=== PATIENT | male | born 1945 | race Caucasian/White ===

== ENCOUNTER 2017-12-16 06:40 | Day surgery (SDC) | payer OTHER ==
[2017-12-16] MEDS ORDERED: Phenylephrine HCl 10 MG/ML 1 ML VIAL ONE ×2 (06:58→07:57)
[2017-12-16] MEDS ORDERED: Ringers Lactate 1,000 ML IV ONE (06:58)
[2017-12-16] MEDS ORDERED: GLYCOPYRROLATE 0.2 MG/ML SYR ONE (06:58)
[2017-12-16] MEDS: LIDOCAINE 4% TOP SOLUTION ONE ×2 (07:23→08:03)
[2017-12-16] MEDS ORDERED: ALBUTEROL 2.5 MG/3 ML NEB SOL ONE (07:51)
[2017-12-16] MEDS ORDERED: PROPOFOL 200 MG/20 ML VIAL IV ONE (07:56)
[2017-12-16] MEDS ORDERED: ESMOLOL HCL 10 ML IV ONE (07:57)
[2017-12-16] MEDS ORDERED: LIDOCAINE 1% MPF 5 ML VIAL ONE ×2 (08:01→09:47)
--- NOTE | 2017-12-16 08:31 | P.OP ---
Date of Service: 12/16/17 (Bronchoscopy with right upper lobe endobronchial biopsy and BAL) Findings and Operative Technique Patient is 72 years of age presented to me with a right upper lobe lung mass history of tobacco abuse hence the reason for bronchoscopy After obtaining informed consent from the patient he was premedicated by anesthesia finding normal vocal cords normal trachea a normal left-sided bronchial anatomy on the right side right upper lobe was in occluded with a pearly white tumor Multiple biopsies were obtained patient tolerated the procedure very well did not experience any hemodynamic abnormalities specimens sent off for routine studies
--- NOTE | 2017-12-16 10:08 | RAD REPORT ---
EXAM DESCRIPTION: Alysa Single View12/16/2017 9:43 am CLINICAL HISTORY: Chest pain COMPARISON: none FINDINGS: A pneumothorax is not visualized status post bronchoscopy. IMPRESSION: A pneumothorax is not seen
--- NOTE | 2017-12-16 10:17 | RAD REPORT ---
EXAM DESCRIPTION: RAD - FLUORO-GUIDE FOR BRONCH UPT1HR - 12/16/2017 8:46 am CLINICAL HISTORY: Lung mass FINDINGS: Right bronchoscopy was performed by Dr. Muñiz. Three fluoroscopic spot images are submi tted. Fluoroscopy time 1.5 minutes
== END 2017-12-16 10:10 | disposition home or self-care (01) ==
LOC: OR 06:40
PROVIDERS: ATTEND Internal Medicine Sleep Medicine
PROC: 0BB48ZX Excision of Right Upper Lobe Bronchus, Via Natural or Artificial Opening Endoscopic, Diagnostic (ICD-10-PCS; principal; 2017-12-16 08:00)
DX: C34.11 Malignant neoplasm of upper lobe, right bronchus or lung (principal); I10 Essential (primary) hypertension; E78.5 Hyperlipidemia, unspecified
CPT/HCPCS: 00520; 31625; 71045; 76000; 87015; 87102; 87116; 87206; 88108; 88305 ×2; 94640; J2370

== ENCOUNTER 2018-06-12 09:55 | Inpatient (IN) | payer OTHER ==
[2018-06-12 10:31] LABS: Absolute Lymphocytes (CBC) 0.4 K/uL (0.7-4.9); Absolute Monocytes 0.2 K/uL (0.1-1.3); Absolute Neutrophil 12.4 K/uL (1.8-8.0); Basophils % 0.3 % (0-1.3); Hematocrit 36.2 % (39.6-49.0); Lymphocytes % 3.4 % (15.3-44.8); MPV 7.5 fL (7.6-11.3); Monocytes % 1.5 % (3.3-12.3); RBC Red Blood Cell Count 3.97 M/uL (4.33-5.43)
[2018-06-12 10:31] LABS: Arterial Blood Carboxyhemoglob 2.2 % (0-1.5); Blood Gas Oxyhemoglobin 83.2 % (94-97)
[2018-06-12 10:37] LABS: Protime INR 1.13
[2018-06-12] MEDS ORDERED: LEVALBUTEROL 1.25 MG/3 ML NEB ONE ×2 (10:38→13:37)
[2018-06-12 10:47] LABS: Platelet Estimate ADEQ; Toxic Granulation PRESENT; Urine White Blood Cell Casts OK
[2018-06-12 10:48] LABS: Blood Morphology Comment NOT SEEN (NOT SEEN)
[2018-06-12 10:50] LABS: ALT/SGPT 21 U/L (12-78); AST/SGOT 11 U/L (15-37); Albumin 2.9 g/dL (3.4-5.0); Alkaline Phosphatase 110 U/L (45-117); BUN Blood Urea Nitrogen 13 mg/dL (7-18); Bicarbonate 28 mmol/L (21-32); Bilirubin Direct 0.7 mg/dL (0-0.2); Bilirubin Total 1.8 mg/dL (0.2-1.0); Glucose Level 113 mg/dL (74-106); Magnesium 1.9 mg/dL (1.8-2.4); NT PRO-BNP 354 pg/mL (<125); Potassium 4.1 mmol/L (3.5-5.1); Protein, Total 6.6 g/dL (6.4-8.2); Sodium Level 131 mmol/L (136-145); Troponin (Emerg Dept Use Only) < 0.02 ng/mL (0.0-0.045)
--- NOTE | 2018-06-12 11:20 | RAD REPORT ---
EXAM DESCRIPTION: RAD - Chest Single View - 06/12/2018 10:52 am CLINICAL HISTORY: shortness of breath Chest pain. COMPARISON: Chest Single View dated 12/16/2017 FINDINGS: Portable technique limits examination quality. Moderate airspace opacity is seen right upper lobe laterally most likely representing pneumonia. Left lung is emphysematous but grossly clear. The heart is normal in size. No displaced fractures. IMPRESSION: Moderate right upper lobe airspace opacity likely representing pneumonia.
--- NOTE | 2018-06-12 11:47 | EDPHYS ---
Physician Documentation [facility] Name: Ramy Matthew Age: 72 yrs Sex: Male : 1945 Arrival Date: 06/12/2018 Time: 10:03 Bed 13 Private MD: ED Physician Se Kendall HPI: 06/12 10:16 This 72 yrs old Male presents to ER via Unassigned with complaints of jmm Shortness of breath. 10:16 The patient has shortness of breath at rest. Onset: The symptoms/episode began/occurred jmm gradually, last night. Duration: The symptoms are continuous, and are steadily getting worse. The patient's shortness of breath is aggravated by nothing, is alleviated by nothing. Associated signs and symptoms: Pertinent positives: fever. This is a 72 year old male with a history of COPD, lung cancer that presents to the ED with shortness of breath he is attributing to COPD which is worse than previous episodes. Patient also admits to fever. . Historical: - Allergies: 09:52 No Known Allergies; rb1 - Home Meds: 09:52 atorvastatin 80 mg oral tab 0.5 tab once daily [Active]; cyclobenzaprine 10 mg Oral tab rb1 1 tab bedtime [Active]; losartan 50 mg oral tab 1 tab once daily [Active]; calcium/vitamin D 500 mg - 200 unit daily [Active]; finasteride 5 mg oral tab 1 tab once daily [Active]; varenicline oral 1 mg oral 1 tab 2 times per day [Active]; etodolac 400 mg Oral Tb24 1 tab twice a day [Active]; Symbicort 160-4.5 mcg/actuation inhalation HFAA 2 puffs 2 times per day [Active]; ProAir HFA 90 mcg/actuation inhalation HFAA [Active]; - PMHx: 09:52 lung cancer- Stage 1; Aortic Aneurysm; rb1 09:52 COPD; rb1 - PSHx: 09:52 Hernia repair; Aortic Aneurysm; rb1 - Immunization history:: Adult Immunizations up to date. - Social history:: Smoking status: Patient uses tobacco products, smokes one-half pack cigarettes per day. - Ebola Screening: : Patient negative for fever greater than or equal to 101.5 degrees Fahrenheit, and additional compatible Ebola Virus Disease symptoms. ROS: 10:16 Cardiovascular: Negative for chest pain, palpitations, and edema. jm 10:16 Abdomen/GI: Negative for abdominal pain, nausea, vomiting, diarrhea, and constipation, Neuro: Negative for headache, weakness, numbness, tingling, and seizure. 10:16 Constitutional: Positive for chills, fever. 10:16 Respiratory: Positive for cough, shortness of breath, wheezing. 10:16 All other systems are negative. Exam: 10:16 Head/Face: atraumatic. Eyes: EOMI, no conjunctival erythema appreciated ENT: Moist jm Mucus Membranes Neck: Trachea midline, Supple Chest/axilla: Normal chest wall appearance and motion. 10:16 Abdomen/GI: Non distended, soft Back: Normal ROM Skin: General appearance color normal MS/ Extremity: Moves all extremities, no obvious deformities appreciated, no edema noted to the lower extremities Neuro: Awake and alert, normal gait 10:16 Constitutional: The patient appears alert, awake, uncomfortable. 10:16 Cardiovascular: Rate: tachycardic. 10:16 Respiratory: mild respiratory distress is noted, Respirations: labored breathing, that is mild, Breath sounds: wheezing: is heard diffusely. Vital Signs: 09:52 BP 114 / 67; Pulse 71; Resp 32; Temp 98.5(TE); Pulse Ox 97% on Nebulizer Mask; Weight rb1 86.18 kg; Height 5 ft. 7 in. (170.18 cm) (R); Pain 7/10; 10:50 BP 108 / 57; Pulse 121; Resp 22; Pulse Ox 99% on R/A; rb1 11:50 BP 125 / 68; Pulse 118; Resp 32; Pulse Ox 95% on R/A; Pain 7/10; rb1 12:50 BP 125 / 69; Pulse 114; Resp 22; Pulse Ox 95% on R/A; rb1 13:20 BP 114 / 83; Pulse 122; Resp 25; Pulse Ox 95% on R/A; rb1 14:02 BP 121 / 70; Pulse 122; Resp 27; Pulse Ox 98% on Nebulizer Mask; rb1 09:52 Body Mass Index 29.76 (86.18 kg, 170.18 cm) rb1 09:52 pt. arrived with breathing treatment being administered. rb1 MDM: 10:08 Patient medically screened. [facility] 11:43 Data reviewed: vital signs, nurses notes, lab test result(s), radiologic studies, plain jmm films. Counseling: I had a detailed discussion with the patient and/or guardian regarding: the historical points, exam findings, and any diagnostic results supporting the discharge/admit diagnosis, lab results, radiology results, the need for further work-up and treatment in the hospital. ED course: I discussed the patient with Dr. Weaver whom accepted the patient . 06/12 10:13 Order name: Basic Metabolic Panel; Complete Time: : [facility] 06/12 10:13 Order name: CBC with Diff; Complete Time: [facility] 06/12 10:13 Order name: LFT's; Complete Time: : [facility] 06/12 10:13 Order name: Magnesium; Complete Time: [facility] 06/12 10:13 Order name: NT PRO-BNP; Complete Time: : [facility] 06/12 10:13 Order name: PT-INR; Complete Time: 10:41 [facility] 06/12 10:13 Order name: Troponin (emerg Dept Use Only); Complete Time: : [facility] 06/12 10:13 Order name: XRAY Chest (1 view); Complete Time: : [facility] 06/12 10:13 Order name: ABG; Complete Time: 11:33 [facility] 06/12 10:13 Order name: Blood Culture Adult (2) [facility] 06/12 10:13 Order name: Procalcitonin; Complete Time: : [facility] 06/12 10:13 Order name: Lactate; Complete Time: : [facility] 06/12 10:33 Order name: CBC Smear Scan; Complete Time: 11:31 [facility] 06/12 10:48 Order name: Flu; Complete Time: 12:10 [facility] 06/12 10:13 Order name: EKG; Complete Time: 10:14 [facility] 06/12 10:13 Order name: Cardiac monitoring; Complete Time: 11:48 [facility] 06/12 10:13 Order name: EKG - Nurse/Tech; Complete Time: 11:48 [facility] 06/12 10:13 Order name: IV Saline Lock; Complete Time: 11:48 [facility] 06/12 10:13 Order name: Labs collected and sent; Complete Time: 11:48 [facility] 06/12 10:13 Order name: O2 Per Protocol; Complete Time: 11:48 [facility] 06/12 10:13 Order name: O2 Sat Monitoring; Complete Time: 11:48 [facility] Administered Medications: 10:30 Drug: Xopenex (3) 1.25 mg Route: Inhalation; rb1 11:42 CANCELLED (different dose): NS 0.9% 1000 ml IV at 1 bolus Per protocol; 1000 mL bolus [facility] 12:21 Not Given (Ordered changed to IVP): Rocephin - (cefTRIAXone) 1 grams IVPB once over 30 rb1 mins; (mix in 50 mL NS) 12:25 Drug: NS 0.9% (30 ml/kg) 30 ml/kg Route: IV; Rate: bolus; Site: right hand; rb1 13:50 Follow up: IV Status: Completed infusion; IV Intake: 1000ml rb1 12:25 Drug: Rocephin 1 grams Route: IV; Rate: calculated rate; Site: right hand; rb1 12:55 Follow up: Response: No adverse reaction; IV Status: Completed infusion rb1 13:30 Drug: Xopenex (3) 1.25 mg Route: Inhalation; rb1 Disposition: 06/12/18 11:46 Hospitalization ordered by Mayi Weaver for Observation. Preliminary diagnosis is Pneumonia. - Bed requested for Telemetry/MedSurg (observation). - Status is Observation. rb1 - Condition is Stable. - Problem is new. - Symptoms are unchanged. UTI on Admission? No Addendum: 06/14/2018 10:21 Co-signature as Attending Physician, Se Kendall MD. g s Signatures: Dispatcher [employer] EDMS Chaparrita Cohn Joel, PA PA [facility] Rose Andre, ZOË CAMP rb1 Se Kendall MD MD gs Corrections: (The following items were deleted from the chart) 06/12 11:42 11:41 NS 0.9% 1000 ml IV at 1 bolus Per protocol; 1000 mL bolus ordered. [facility] 13:04 11:46 Hospitalization Ordered by Mayi Weaver MD for Observation. Preliminary diagnosis bd is Pneumonia. Bed requested for Telemetry/MedSurg (observation). Status is Observation. Condition is Stable. Problem is new. Symptoms are unchanged. UTI on Admission? No. [facility] 14:19 13:04 06/12/2018 11:46 Hospitalization Ordered by Mayi Weaver MD for Observation. rb1 Preliminary diagnosis is Pneumonia. Bed requested for Telemetry/MedSurg (observation). Status is Observation. Condition is Stable. Problem is new. Symptoms are unchanged. UTI on Admission? No. bd
--- NOTE | 2018-06-12 11:47 | ER ---
Nurse's Notes [facility] Name: Ramy Matthew Age: 72 yrs Sex: Male : 1945 Arrival Date: 06/12/2018 Time: 10:03 Bed 13 Private MD: Diagnosis: Pneumonia Presentation: 06/12 09:52 Presenting complaint: EMS states: Pt. is A \\T\\ O x 4, has a history of Stage 1 lung rb1 cancer. Became SOB last night and it has increasingly gotten worse. Pt. wears oxygen at home but does not have a humidifier so it dries up his throat and makes it difficult to breath. Wheezing in all lung [place] and diminished breath sounds in the lower lobes. Administered Albuterol and Atrovent, and Solu-Medrol. BP 111/82, P 130's, O2 sat was 88% when EMS arrived, after the breathing treatment was administered O2 sat increased to 97-98%, BGL 132, T 101.2. NKA and 18 G L AC. Transition of care: patient was not received from another setting of care. Onset of symptoms was June 11, 2018. Risk Assessment: Do you want to hurt yourself or someone else? Patient reports no desire to harm self or others. Initial Sepsis Screen: Does the patient meet any 2 criteria? No. Patient's initial sepsis screen is negative. Does the patient have a suspected source of infection? No. Patient's initial sepsis screen is negative. Care prior to arrival: Medication(s) given: Albuterol Neb Atrovent Neb Solu-Medrol. 09:52 Method Of Arrival: EMS: [facility] rb1 09:52 Acuity: ANALY 3 rb1 Triage Assessment: 09:52 General: Appears uncomfortable, Behavior is calm, cooperative, Reports fever for. Pain: rb1 Complains of pain in generalized Pain currently is 7 out of 10 on a pain scale. Pain began Pt. stated, "My whole body hurts all the time.". Neuro: Level of Consciousness is awake, alert, obeys commands, Oriented to person, place, time, situation. Cardiovascular: Capillary refill < 3 seconds is brisk in bilateral fingers. Respiratory: Airway is patent Respiratory effort is even, labored, Respiratory pattern is symmetrical, tachypnea. GI: No signs and/or symptoms were reported involving the gastrointestinal system. : No signs and/or symptoms were reported regarding the genitourinary system. Derm: Skin is pink, warm \\T\\ dry. Musculoskeletal: Range of motion: intact in all extremities. Historical: - Allergies: :52 No Known Allergies; rb1 - Home Meds: :52 atorvastatin 80 mg oral tab 0.5 tab once daily [Active]; cyclobenzaprine 10 mg Oral tab rb1 1 tab bedtime [Active]; losartan 50 mg oral tab 1 tab once daily [Active]; calcium/vitamin D 500 mg - 200 unit daily [Active]; finasteride 5 mg oral tab 1 tab once daily [Active]; varenicline oral 1 mg oral 1 tab 2 times per day [Active]; etodolac 400 mg Oral Tb24 1 tab twice a day [Active]; Symbicort 160-4.5 mcg/actuation inhalation HFAA 2 puffs 2 times per day [Active]; ProAir HFA 90 mcg/actuation inhalation HFAA [Active]; - PMHx: :52 lung cancer- Stage 1; Aortic Aneurysm; rb1 09:52 COPD; rb1 - PSHx: 09:52 Hernia repair; Aortic Aneurysm; rb1 - Immunization history:: Adult Immunizations up to date. - Social history:: Smoking status: Patient uses tobacco products, smokes one-half pack cigarettes per day. - Ebola Screening: : Patient negative for fever greater than or equal to 101.5 degrees Fahrenheit, and additional compatible Ebola Virus Disease symptoms. Screenin:52 Abuse screen: Denies threats or abuse. Nutritional screening: No deficits noted. rb1 Tuberculosis screening: No symptoms or risk factors identified. Fall Risk None identified. Assessment: 09:52 General: See triage assessment. rb1 10:50 Reassessment: Patient appears in no apparent distress at this time. No changes from rb1 previously documented assessment. at bedside. 11:50 Reassessment: Patient appears in no apparent distress at this time. Patient and/or rb1 family updated on plan of care and expected duration. Pain level reassessed. Patient is alert, oriented x 3, equal unlabored respirations, skin warm/dry/pink. 12:50 Reassessment: Patient appears in no apparent distress at this time. No changes from rb1 previously documented assessment. Family at bedside. 13:35 Reassessment: Called report to ZOË Burk. Information from the [facility] was given. All rb1 questions asked and answered. 14:10 Reassessment: Patient appears in no apparent distress at this time. Patient and/or rb1 family updated on plan of care and expected duration. Pain level reassessed. Patient is alert, oriented x 3, equal unlabored respirations, skin warm/dry/pink. Family at bedside. Vital Signs: 09:52 BP 114 / 67; Pulse 71; Resp 32; Temp 98.5(TE); Pulse Ox 97% on Nebulizer Mask; Weight rb1 86.18 kg; Height 5 ft. 7 in. (170.18 cm) (R); Pain 7/10; 10:50 BP 108 / 57; Pulse 121; Resp 22; Pulse Ox 99% on R/A; rb1 11:50 BP 125 / 68; Pulse 118; Resp 32; Pulse Ox 95% on R/A; Pain 7/10; rb1 12:50 BP 125 / 69; Pulse 114; Resp 22; Pulse Ox 95% on R/A; rb1 13:20 BP 114 / 83; Pulse 122; Resp 25; Pulse Ox 95% on R/A; rb1 14:02 BP 121 / 70; Pulse 122; Resp 27; Pulse Ox 98% on Nebulizer Mask; rb1 09:52 Body Mass Index 29.76 (86.18 kg, 170.18 cm) rb1 09:52 pt. arrived with breathing treatment being administered. rb1 ED Course: 09:52 Arm band placed on right wrist. rb1 09:52 Patient has correct armband on for positive identification. Bed in low position. Call rb1 light in reach. Side rails up X 1. Pulse ox on. NIBP on. 09:52 Maintain EMS IV. Dressing intact. Good blood return noted. Site clean \\T\\ dry. Gauge \\T\\ rb 1 site: 18 G L AC. 10:03 Patient arrived in ED. rb1 10:05 Tom Spear PA is PHCP. [facility] 10:05 Se Kendall MD is Attending Physician. [facility] 10:21 Triage completed. rb1 10:24 Rose Andre, ZOË is Primary Nurse. rb1 10:26 Initial lab(s) drawn, by ct, sent to lab. [facility] 10:39 First set of blood cultures drawn by ct. Inserted saline lock: 20 gauge in right dh3 forearm, using aseptic technique. Blood collected. 10:53 XRAY Chest (1 view) In Process Unspecified. EDMS 11:44 Mayi Weaver MD is Hospitalizing Provider. jmm 11:48 EKG done, by ED staff, reviewed by Tom BOSCH. 3 14:19 No provider procedures requiring assistance completed. Patient admitted, IV remains in rb1 place. Administered Medications: 10:30 Drug: Xopenex (3) 1.25 mg Route: Inhalation; rb1 11:42 CANCELLED (different dose): NS 0.9% 1000 ml IV at 1 bolus Per protocol; 1000 mL bolus jmm 12:21 Not Given (Ordered changed to IVP): Rocephin - (cefTRIAXone) 1 grams IVPB once over 30 rb1 mins; (mix in 50 mL NS) 12:25 Drug: NS 0.9% (30 ml/kg) 30 ml/kg Route: IV; Rate: bolus; Site: right hand; rb1 13:50 Follow up: IV Status: Completed infusion; IV Intake: 1000ml rb1 12:25 Drug: Rocephin 1 grams Route: IV; Rate: calculated rate; Site: right hand; rb1 12:55 Follow up: Response: No adverse reaction; IV Status: Completed infusion rb1 13:30 Drug: Xopenex (3) 1.25 mg Route: Inhalation; rb1 Intake: 13:50 IV: 1000ml; Total: 1000ml. rb1 Outcome: 11:46 Decision to Hospitalize by Provider. jmm 14:19 Patient left the ED. rb1 14:19 Admitted to Tele accompanied by tech, family with patient, via stretcher, room 409, rb1 with oxygen, with chart, Report called to ZOË Burk 14:19 Condition: stable rb1 14:19 Instructed on the need for admit. Signatures: Dispatcher [employer] EDMS Tom Spear PA PA Rose Lott, RN RN rb1 Caroline Jenkins 3
[2018-06-12] MEDS ORDERED: ONDANSETRON 4 MG/2 ML VIAL IV PRN (12:18)
[2018-06-12] MEDS ORDERED: ALBUTEROL 2.5 MG/3 ML NEB SOL NEB PRN (12:19)
[2018-06-12] MEDS ORDERED: NA CHLORIDE 0.9% 1,000 ML ONE ×2 (12:26→13:52)
[2018-06-12] MEDS ORDERED: CEFTRIAXONE/SWI 1gm 1 GM/10 ML SYR ONE (12:27)
[2018-06-12] MEDS ORDERED: NA CHLORIDE 0.9% 1,000 ML IV SCH (13:00)
[2018-06-12] MEDS: AZITHROMYCIN IV 500 MG in NA CHLORIDE 0.9% 250 ML IVPB SCH (13:00)
[2018-06-12] MEDS ORDERED: ENOXAPARIN 40 MG/0.4 ML SQ SCH (13:00)
[2018-06-12] MEDS: IPRATROPIUM BROM 0.5MG/2.5ML NEB PRN (16:15)
--- NOTE | 2018-06-12 16:26 | EKG ---
Test Date: 2018-06-12 Test Time: 11:39:06 Sole Scraper: ROMEL MEASUREMENT RESULTS: Intervals: Rate: 148 RI: 128 QRSD: 72 QT: 276 QTc: 433 [place]: P: 58 RI: 128 QRS: 53 T: 63 INTERPRETIVE STATEMENTS: Atrial fibrillation with rapid ventricular response Nonspecific ST and T wave abnormality Abnormal ECG No previous ECG available for comparison Electronically Signed On 06-12-18 16:25:22 BIOLOGY PROFESSOR by Adriano Redmond
[2018-06-12] MEDS ORDERED: HOME MED 1 EA UNK (Varenicline Tartrate [Chantix] 1 MG) PO SCH (17:00)
[2018-06-12] MEDS ORDERED: METOPROLOL TARTRATE 5 MG/5 ML INJ IV STA (17:16)
[2018-06-12] MEDS ORDERED: MORPHINE 4 MG/ML SYR IV ONE (17:17)
[2018-06-12] MEDS: METHYLPREDNISOLONE 40 MG INJ IV SCH (17:53)
[2018-06-12 19:02] LABS: Blood Gas Oxyhemoglobin 92.4 % (94-97); Blood O2 Saturation 94.8 % (92-98.5)
--- NOTE | 2018-06-12 21:06 | EKG ---
Test Date: 2018-06-12 Test Time: 17:34:15 Gunner'S Mate: MARIBEL MEASUREMENT RESULTS: Intervals: Rate: 121 DC: 124 QRSD: 76 QT: 302 QTc: 428 [place]: P: 44 DC: 124 QRS: 58 T: 48 INTERPRETIVE STATEMENTS: Sinus tachycardia Otherwise normal ECG Compared to ECG 06/12/2018 11:39:06 Atrial fibrillation no longer present ST (T wave) deviation no longer present Electronically Signed On 06-12-18 21:06:21 STRATEGIC PLANNER by Adriano Redmond
[2018-06-12] MEDS: CEFTRIAXONE/SWI 1gm 1 GM/10 ML SYR IVP SCH (21:48)
[2018-06-12] MEDS: CYCLOBENZAPRINE 10 MG TAB PO SCH (21:48)
[2018-06-12] MEDS: ATORVASTATIN 40 MG TAB PO SCH (21:48)
[2018-06-12] MEDS: NA CHLORIDE 0.9% 1,000 ML IV SCH (21:50)
[2018-06-12 23:27] LABS: Urine Appearance CLEAR; Urine Bilirubin NEGATIVE (NEG); Urine Blood TRACE (NEG); Urine Color YELLOW; Urine Glucose 1+ (NEG); Urine Protein NEGATIVE (NEG); Urine pH 6.5 (5.0-7.0)
[2018-06-12 23:30] LABS: Urine Microscopic Reflex ORDER UMIC
[2018-06-12 23:51] LABS: Urine Bacteria <20 /HPF (NONE SEEN); Urine Culture Reflex Order NOT NEEDED; Urine RBC <5 /HPF (NONE SEEN)
[2018-06-13] MEDS: NA CHLORIDE 0.9% 1,000 ML IV SCH ×2 (01:44→08:20)
--- NOTE | 2018-06-13 01:58 | HP ---
Date of Admission: 06/12/2018 Chief Complaint: Cough and shortness of breath. Code status: Full Additional Consulting Physician: Jani Muñiz MD, with Pulmonology. History Of Present Illness: The patient is a 72-year-old male with past medical history of COPD, on supplemental oxygen, recently diagnosed stage I lung cancer on the right, status post radiation and undergoing chemotherapy, currently under the care of [facility] oncology, who was in his usual state of health until the day prior to admission when the patient had sudden onset of fever, chills, shortness of breath along with cough. The patient is a smoker, continues to smoke about 5 cigarettes per day, has cut down from 1 pack per day , has been smoking since the age of 16. The patient's symptoms are constant, severe and progressively worsening. Came into the ER for further evaluation. Upon arrival, he appeared septic. He was tachycardic at 122, tachypneic, breathing 32 times a minute. The patient's workup revealed a white count of 13, 000. His procalcitonin was elevated at 0.96, however, lactate was normal. The patient was started on sepsis bundle, given IV fluids and started on IV antibiotics and referred for admission. When the patient was seen in the ER, he was awake, alert, oriented x3, in some moderate respiratory distress. Past Medical History: COPD, stage I right-sided lung cancer, currently on radiation and chemotherapy, hypertension. Past Surgical History: Bilateral inguinal hernia repair and aortic aneurysm repair. Allergies: NO KNOWN DRUG ALLERGIES. Medications: List reviewed. Social History: The patient smokes 5 cigarettes per day, was smoking 1 pack per day until last year and has smoked since age of 16. Drinks alcohol rarely. The patient is , has a daughter, retired . Family History: Diabetes runs in the family. Mom has diabetes. Review of Systems: An 11-point system reviewed, negative except as per HPI. Physical Examination: Vital Signs: Temperature 101.2 via EMS, heart rate 122, respirations 32, blood pressure 125/68, O2 95% on 3 L via nasal cannula. General: Awake, alert, oriented x3, elderly male, ill-appearing, in moderate respiratory distress. HEENT: Normocephalic, atraumatic. PERRLA, EOMI. Moist mucous membranes. Oropharynx is clear. Poor dentition. Conjunctivae anicteric. Neck: Supple. No JVD. Trachea midline. CV: S1, S2. Sinus tachycardia. No murmurs. Peripheral pulses present. Respiratory: Diminished breath sounds. Wheezing heard throughout, the right side is worse than the left. The patient is tachypneic. Use of accessory muscles is present. Gastrointestinal: Abdomen is soft, nondistended, nontender. Positive bowel sounds. No guarding or rigidity. Obese. Extremities: No clubbing, cyanosis, or edema. No calf tenderness. Neuro: Cranial nerves 2-12 intact grossly. No focal neurological deficit. Speech is normal. Strength is 5/5 in bilateral upper and lower extremities. Sensation intact to light touch. Skin: No rashes. Normal skin turgor. Laboratory Data: Sodium 131, potassium 4.1, chloride 95, CO2 28, BUN 13, creatinine 0.74, glucose 113, lactate 1.4, calcium 8.5, magnesium 1.9. Troponin less than 0.02. BNP 354. Albumin 2.9. Procalcitonin 0.96. ABG; pH 7.49, pCO2 36.6, pO2 50, bicarb 27.6, INR 1.13. WBC 13.1, H and H 12.3 and 36.2 , platelets 157, neutrophils 24%. Influenza screen negative. Blood cultures and sputum cultures are pending. Chest x-ray, personally reviewed, shows moderate right upper lobe airspace opacity, likely representing pneumonia. Assessment And Plan: A 72-year-old male with. 1. Sepsis. The patient is tachycardic, tachypneic, temperature is 101.2. White count is elevated. Source of infection is pneumonia. Procalcitonin is also elevated. The patient has received sepsis bundle, IV fluid bolus 30 mL/ kg. We will continue with broad-spectrum IV antibiotics and obtain cultures. 2. Right upper lobe pneumonia. We will continue IV antibiotics and follow up on sputum culture, rule out aspiration. We will have Speech Therapy evaluate the patient. This may be a postobstructive pneumonia. The patient's lung cancer is on the right upper lobe. 3. Stage I right upper lobe lung cancer, status post radiation and currently undergoing chemotherapy. Oncology has been consulted. We will consult Pulmonology as well. 4. Essential hypertension, stable. 5. Acute respiratory distress with hypoxia. Continue supplemental oxygen. 6. Chronic obstructive pulmonary disease, chronic bronchitis. We will continue with nebulizer treatments, resume Symbicort. 7. Obesity. 8. Gastrointestinal and deep vein thrombosis prophylaxis, PPI and Lovenox. Plan: Admit the patient to Med-Surg, place as inpatient. Length of stay greater than 2 midnights. KIRAN Voice ID: [id number]
[2018-06-13 06:26] LABS: Absolute Lymphocytes (CBC) 0.2 K/uL (0.7-4.9); Absolute Monocytes 0.7 K/uL (0.1-1.3); Absolute Neutrophil 7.1 K/uL (1.8-8.0); Basophils % 0.1 % (0-1.3); Eosinophils % 0.1 % (0-4.4); Hematocrit 30.6 % (39.6-49.0); Lymphocytes % 2.2 % (15.3-44.8); MPV 7.6 fL (7.6-11.3); Monocytes % 8.5 % (3.3-12.3); RBC Red Blood Cell Count 3.32 M/uL (4.33-5.43)
[2018-06-13 06:30] LABS: BUN Blood Urea Nitrogen 10 mg/dL (7-18); Bicarbonate 27 mmol/L (21-32); Glucose Level 132 mg/dL (74-106); Magnesium 2.3 mg/dL (1.8-2.4); Phosphorus 3.1 mg/dL (2.5-4.9); Potassium 4.2 mmol/L (3.5-5.1); Sodium Level 135 mmol/L (136-145)
[2018-06-13] MEDS ORDERED: METOPROLOL TARTRATE 5 MG/5 ML INJ IV PRN (08:01)
[2018-06-13] MEDS: IPRATROPIUM BROM 0.5MG/2.5ML NEB PRN (08:14)
[2018-06-13] MEDS: METHYLPREDNISOLONE 40 MG INJ IV SCH ×2 (08:17→21:29)
[2018-06-13] MEDS: FINASTERIDE 5 MG TAB PO SCH (08:21)
[2018-06-13] MEDS: CEFTRIAXONE/SWI 1gm 1 GM/10 ML SYR IVP SCH (08:21)
[2018-06-13] MEDS: ENOXAPARIN 100 MG/ML SYR SQ SCH ×2 (08:26→21:31)
[2018-06-13] MEDS: AZITHROMYCIN IV 500 MG in NA CHLORIDE 0.9% 250 ML IVPB SCH (08:28)
--- NOTE | 2018-06-13 08:43 | P.CNS ---
Date of Consult: 06/13/18 Chief Complaint: Pneumonia respiratory distress History of Present Illness: Patient is 72 years of age with a history of lung cancer was treated with radiation is currently receiving chemotherapy this suddenly became worse started having shortness of breath fever productive cough admitted with a right- sided pneumonia he does have a history of severe COPD currently on BiPAP some respiratory distress off the BiPAP able to speak in full sentences denies any chest pain Allergies No Known Allergies Allergy (Verified 12/16/17 07:11) Home Medications: Albuterol Sulfate [Proair Hfa] 8.5 gm IH DAILY 12/16/17 Amlodipine Besylate [Norvasc] 10 mg PO DAILY 12/16/17 Atorvastatin Calcium [Lipitor] 0.5 tab PO BEDTIME 12/16/17 Budesonide/Formoterol Fumarate [Symbicort 160-4.5 Mcg Inhaler] 1 puff IH DAILY 12/16/17 Cyclobenzaprine HCl 10 mg PO BEDTIME 12/16/17 Etodolac [Lodine] 400 mg PO BID 12/16/17 Losartan Potassium [Cozaar] 50 mg PO DAILY 12/16/17 Tiotropium [place] [Spiriva] 1 spray IH DAILY 12/16/17 predniSONE [Deltasone] 10 mg PO DAILY 12/16/17 Calcium Carbonate/Vitamin D3 [Calcium 500 + Vit D 200 Caplet] 1 tab PO DAILY Finasteride [Proscar] 5 mg PO DAILY 06/12/18 Varenicline Tartrate [Chantix] 1 mg PO BIDWM 06/12/18 - Past Medical/Surgical History Diabetic: No -: COPD has home O2. -: lung cancer - stage 1 on chemo and rad -: aortic anurysm repair -: ABD hernia repair x2 - Family History Father Medical History: Lung disease, Cancer - Social History Alcohol use: No CD- Drugs: No Caffeine use: Yes Place of Residence: Home Review of Systems General: Weakness Respiratory: Cough, Shortness of Breath Physical Examination Temp Pulse Resp BP Pulse Ox 98.1 F 162 H 25 H 126/79 96 06/13/18 08:00 06/13/18 08:13 06/13/18 08:00 06/13/18 08:13 06/13/18 08:00 General: Alert, Oriented x3, Moderate distress Respiratory: Expiratory wheezes Cardiovascular: No edema, Regular rate/rhythm Gastrointestinal: Normal bowel sounds Laboratory Data (last 24 hrs) 06/12/18 10:23: PT 13.4 H, INR 1.13 06/12/18 10:23: WBC 13.1 H, Hgb 12.3 L, Hct 36.2 L, Plt Count 157 06/12/18 10:23: Sodium 131 L, Potassium 4.1, BUN 13, Creatinine 0.74, Glucose 113 H, Magnesium 1.9, Total Bilirubin 1.8 H, AST 11 L, ALT 21, Alkaline Phosphatase 110 - Problems (1) Pneumonia Current Visit: Yes Status: Acute Plan: Patient is 72 years of age with a history of lung cancer currently treated with chemotherapy admitted with right-sided presumed pneumonia is white count is also mildly elevated he is at risk for a healthcare associated infections I suggest interchange agent to cefepime and vancomycin patient is high risk Dc Zithromax and Rocephin continue with bronchodilators patient is hypoxic cultures are all pending patient developed AFib in is currently anti coagulated Qualifiers: Pneumonia type: due to unspecified organism Laterality: right
[2018-06-13] MEDS ORDERED: Pharmacy Consult 1 EA XX PRN (08:49)
[2018-06-13] MEDS ORDERED: HOME MED 1 EA UNK (Budesonide/Formoterol Fumarate [Symbicort 160-4.5 Mcg Inhaler] 1 PUFF) IH SCH (09:00)
[2018-06-13] MEDS ORDERED: CEFEPIME 1 GM/VIAL IV SCH (09:00)
[2018-06-13] MEDS: CEFEPIME/SWI 1gm 1 GM/10 ML SYR IV SCH ×2 (09:22→21:30)
[2018-06-13] MEDS: VANCOMYCIN 1.5 GM in NA CHLORIDE 0.9% 500 ML IVPB SCH ×2 (09:22→21:32)
[2018-06-13] MEDS ORDERED: SOTALOL HCL 80 MG TAB PO ONE (09:31)
[2018-06-13] MEDS: ARFORMOTEROL TARTRATE 15 MCG/2 ML VIAL.NEB NEB SCH ×2 (11:45→19:15)
[2018-06-13] MEDS: LEVALBUTEROL 1.25 MG/3 ML NEB NEB SCH ×3 (11:45→19:15)
--- NOTE | 2018-06-13 11:59 | EKG ---
Test Date: 2018-06-13 Test Time: 08:16:18 Hospice Administrator: TAMMY MEASUREMENT RESULTS: Intervals: Rate: 143 IA: 184 QRSD: 88 QT: 240 QTc: 370 [place]: P: IA: 184 QRS: 49 T: -38 INTERPRETIVE STATEMENTS: Sinus tachycardia Nonspecific T wave abnormality Abnormal ECG Compared to ECG 06/12/2018 17:34:15 T-wave abnormality now present Electronically Signed On 06-13-18 11:58:13 [employer]IST by Adriano Redmond
[2018-06-13] MEDS: PROPOFOL 200 MG/20 ML VIAL IV STA ×2 (13:18→18:14)
[2018-06-13] MEDS ORDERED: SUCCINYLCHOLINE 20 MG/ML (10 ML) IV SCH (13:19)
[2018-06-13] MEDS ORDERED: PROPOFOL 200 MG/20 ML VIAL IV STA (13:24)
[2018-06-13] MEDS ORDERED: RSI MEDICATION KIT IV ONE (13:26)
[2018-06-13] MEDS ORDERED: NA CHLORIDE 0.9% 250 ML IV PRN (13:36)
[2018-06-13] MEDS ORDERED: HALOPERIDOL LACT 5 MG/ML INJ IV PRN (13:36)
[2018-06-13] MEDS: PROPOFOL 1,000 MG/100 ML VIAL IV PRN (13:40)
[2018-06-13] MEDS: IPRATROPIUM BROM 0.5MG/2.5ML NEB SCH ×2 (14:00→19:15)
[2018-06-13] MEDS: LORazepam 2 MG/ML VIAL IV PRN (14:09)
--- NOTE | 2018-06-13 14:14 | RAD REPORT ---
EXAM DESCRIPTION: Alysa Single View06/13/2018 1:57 pm CLINICAL HISTORY: Device placement. Endotracheal tube placement COMPARISON: June 12 FINDINGS: Since the prior exam and endotracheal tube has been inserted with its tip 4 centimeters a mich the sidra. A nasogastric tube has been placed into the stomach. Mild improvement in the right upper lobe opacities has occurred
--- NOTE | 2018-06-13 15:28 | CON ---
Chief Complaint: Dyspnea. Reason For Consult: Atrial fib. History Of Present Illness: Mr. Matthew has never had heart disease before. He is being treated f or lung cancer. It is a yls-axijr-wzwy lung cancer; it was stage III or IV, never resected. He unde rwent radiation therapy and now is undergoing chemotherapy. Oncologists seem to be happy with the wa y things are going. I do not declare him free of any disease or cured. While he was getting ready t o go through a treatment, he told the physicians he would suddenly become short of breath and he was found to be in atrial fib. His heart rate slowed by giving beta-blockers, but right now he is in atr ial flutter, 2:1 conduction, ventricular response rate about 140. So, I think we can declare that me toprolol has not been effective at treating this. He has no history of diabetes, coronary heart dise ase, bypass surgery or stents. Outpatient Medications: Prednisone, losartan, atorvastatin, Spiriva, Lodine, cyclobenzaprine, Symbic ort, amlodipine, albuterol, Proscar, Varenicline, calcium carbonate, folic acid. Allergies: NO ALLERGIES. Physical Examination: Vital Signs: 5 feet 7, 191 pounds. HEENT: Normal. Lungs: Diffuse large airway sounds. No wheezing. Abdomen: Soft. Heart: Irregularly irregular, going about 140. Extremities: Mild edema. There is livedo reticularis around his knees present since he started his chemotherapy. Distal pulses barely palpable. There is mild edema around the ankles. Diagnostic Data: EKG shows atrial fibrillation and atrial flutter. Impression: We should give him Betapace. Continue the anticoagulation. He is on Lovenox for that a nd if he is still in atrial fibrillation or atrial flutter tomorrow, we can consider doing a cardiove rsion then. MARCIE/COLIN Voice ID: [id number] Report ID: [id number]
[2018-06-13] MEDS: MIDAZOLAM HCL 2 MG/2 ML INJ IV PRN ×2 (17:01→19:35)
--- NOTE | 2018-06-13 17:18 | PN ---
Date of Progress Note: 06/13/2018 Subjective: The patient is seen and examined. Chart reviewed and case discussed with RN and Dr. Muñiz as well as Dr. Redmond. The patient went into atrial fibrillation early this morning with a rate in the 150s. The patient was placed on BiPAP overnight due to respiratory distress. Medications: List reviewed. Physical Examination: Vital Signs: Temperature 98.1, heart rate 162, blood pressure 130/91, respirations 25, O2 96% on BiPAP, 45% FiO2. General: Awake, alert, oriented x3. Elderly male, ill appearing, in moderate respiratory distress. Obese. CV: S1, S2. Irregularly irregular, rapid rate. Peripheral pulses present. Respiratory: Diminished breath sounds. Wheezing heard throughout. The patient is tachypneic with the use of accessory muscles. No stridor. Gastrointestinal: Abdomen is soft, distended, nontender. Positive bowel sounds. No guarding or rigidity. Extremities: No clubbing, cyanosis, or edema. Neurologic: Nonfocal. Laboratory Data: Sodium 135, potassium 4.2, chloride 103, CO2 27, BUN 10, creatinine 0.6, glucose 132, lactate 1.4, calcium 8.3, TSH 0.19. WBC 8, H and H 10.5 and 30.6, platelets 157, neutrophils 89%. Blood cultures, no growth to date. Sputum culture is pending. EKG last night showed sinus tachycardia, rate of 121. Assessment And Plan: A 72-year-old male with: 1. Sepsis, improving, secondary to pneumonia. We will continue IV antibiotics. Antibiotics switched to cefepime and vancomycin due to risk of methicillin-resistant Staphylococcus aureus and gram-negative pneumonia. Appreciate Dr. Muñiz's input. 2. Right upper lobe pneumonia. Antibiotics adjusted. Cultures are negative to date. Pending Speech Therapy evaluation. Possible gram-negative pneumonia. 3. New onset atrial fibrillation with rapid ventricular response. The patient has been started on Betapace by Dr. Redmond and need cardioversion in a.m. We will start on Lovenox for anticoagulation and switch over to oral anticoagulants before discharge. 4. Stage I right upper lobe lung cancer status post radiation and chemotherapy. The patient sees Dr. Mitchell. 5. Essential hypertension, stable. 6. Acute respiratory distress with hypoxia, requiring BiPAP, secondary to pneumonia and atrial fibrillation. 7. Chronic obstructive pulmonary disease, chronic bronchitis. We will continue nebulizer treatments, switch to Xopenex, and resume Symbicort. 8. Overweight, BMI 29.9. 9. Gastrointestinal and deep venous thrombosis prophylaxis with PPI and Lovenox. Plan: Transfer to ICU, electively intubate as pt is fatiguing and not improving on BIPAP. Case discussed with Dr. Muñiz. /COLIN Voice ID: [id number] Report ID: [id number] MTDD
[2018-06-13] MEDS ORDERED: SUCCINYLCHOLINE 20 MG/ML (10 ML) IV ONE (17:34)
[2018-06-13] MEDS: SOTALOL HCL 80 MG TAB PO SCH (18:44)
[2018-06-13] MEDS: FENTANYL CITR 100 MCG/2 ML IV PRN (21:10)
[2018-06-13] MEDS: FAMOTIDINE 20 MG/2 ML VIAL IV SCH (21:29)
[2018-06-13] MEDS: ATORVASTATIN 40 MG TAB PO SCH (21:30)
[2018-06-13] MEDS: CYCLOBENZAPRINE 10 MG TAB PO SCH (21:31)
[2018-06-14] MEDS: IPRATROPIUM BROM 0.5MG/2.5ML NEB SCH ×4 (01:10→20:40)
[2018-06-14] MEDS: LEVALBUTEROL 1.25 MG/3 ML NEB NEB SCH ×4 (01:10→20:40)
[2018-06-14] MEDS: SOTALOL HCL 80 MG TAB PO SCH ×2 (05:29→15:34)
[2018-06-14 05:37] LABS: Absolute Lymphocytes (CBC) 0.3 K/uL (0.7-4.9); Absolute Monocytes 1.1 K/uL (0.1-1.3); Absolute Neutrophil 6.1 K/uL (1.8-8.0); Basophils % 0.1 % (0-1.3); Eosinophils % 0.1 % (0-4.4); Hematocrit 28.5 % (39.6-49.0); Lymphocytes % 4.1 % (15.3-44.8); MPV 8.5 fL (7.6-11.3); Monocytes % 14.2 % (3.3-12.3); RBC Red Blood Cell Count 3.07 M/uL (4.33-5.43)
[2018-06-14 06:04] LABS: BUN Blood Urea Nitrogen 24 mg/dL (7-18); Bicarbonate 24 mmol/L (21-32); Glucose Level 131 mg/dL (74-106); Magnesium 2.4 mg/dL (1.8-2.4); Phosphorus 3.5 mg/dL (2.5-4.9); Potassium 4.8 mmol/L (3.5-5.1); Sodium Level 137 mmol/L (136-145)
[2018-06-14] MEDS: PROPOFOL 1,000 MG/100 ML VIAL IV PRN ×2 (07:13→21:47)
--- NOTE | 2018-06-14 08:03 | P.PN ---
Subjective Date of Service: 06/14/18 Chief Complaint: Pneumonia respiratory distress Subjective: Improving (Patient is doing better he was intubated yesterday in AFib at awaiting cardioversion) Review of Systems is unable to be obtained Physical Examination - Vital Signs Temperature: 97.1 F Blood Pressure: 98/84 Pulse: 159 Respirations: 28 Pulse Ox (%): 100 - Physical Exam General: Alert, Cooperative Respiratory: Clear to auscultation bilaterally, Diminished Cardiovascular: No edema, Normal S1 S2 - Studies Microbiology Data (last 24 hrs): 06/12/18 11:04 Blood - Blood Anaerobic Blood Culture - Final Assessment & Plan - Problems (Diagnosis) (1) Pneumonia Onset Date: 06/13/18 Current Visit: Yes Status: Acute Plan: Patient is 72 years of age admitted with a right-sided pneumonia he has lung cancer continue with antibiotics sputum cultures pending blood cultures negative chest x-ray no progression white count is now normal change vent to SIMV pressure support consider weaning off the vent today patient is on steroids on bronchodilators broad-spectrum antibiotics 40% FiO2 Qualifiers: Pneumonia type: due to unspecified organism Laterality: right
[2018-06-14] MEDS: ARFORMOTEROL TARTRATE 15 MCG/2 ML VIAL.NEB NEB SCH ×2 (08:14→20:40)
--- NOTE | 2018-06-14 08:34 | RAD REPORT ---
EXAM DESCRIPTION: RAD - Chest Single View - 06/14/2018 6:38 am CLINICAL HISTORY: Pneumonia Chest pain. COMPARISON: Chest Single View dated 06/13/2018; Chest Single View dated 06/12/2018; Chest Single View dated 12/16/2017 FINDINGS: Portable technique limits examination quality. Tip of the ET tube is above the sidra. Enteric tube descends into the upper abdomen. Ill-defined rig ht mid lung and upper lobe lung opacity appears mildly improved since comparative study. Heart size i s normal. IMPRESSION: Mild improvement in right upper lobe lung aeration since comparative study.
[2018-06-14] MEDS: VANCOMYCIN 1.5 GM in NA CHLORIDE 0.9% 500 ML IVPB SCH ×2 (08:40→21:49)
[2018-06-14] MEDS: FAMOTIDINE 20 MG/2 ML VIAL IV SCH ×2 (08:41→21:48)
[2018-06-14] MEDS: FOLIC ACID 1 MG TABLET PO SCH (08:41)
[2018-06-14] MEDS: ENOXAPARIN 100 MG/ML SYR SQ SCH ×2 (08:41→21:47)
[2018-06-14] MEDS: FINASTERIDE 5 MG TAB PO SCH (08:41)
[2018-06-14] MEDS: CEFEPIME/SWI 1gm 1 GM/10 ML SYR IV SCH ×2 (10:07→21:48)
[2018-06-14] MEDS: METHYLPREDNISOLONE 40 MG INJ IV SCH ×2 (10:26→21:47)
--- NOTE | 2018-06-14 13:20 | PN ---
Date of Progress Note: 06/14/2018 Mr. Matthew was seen by Dr. Redmond for new onset atrial fibrillation while undergoing lung cancer c hemotherapy treatment. He was started on Betapace. He had just received 1 dose yesterday. He remai roxanne in atrial fibrillation at a rate of about 110. We will continue Betapace as is. He will receive another dose this morning and 1 dose this afternoon, and if he remains in atrial fibrillation, we wi ll do a cardioversion tomorrow. Echocardiogram is pending for today. The patient has remained intub ated. O2 saturations are adequate. NB/MODL Voice ID: [id number] Report ID: [id number]
[2018-06-14] MEDS: LORazepam 2 MG/ML VIAL IV PRN (15:41)
--- NOTE | 2018-06-14 18:41 | P.PN ---
Subjective Date of Service: 06/14/18 Chief Complaint: Pneumonia respiratory distress The patient is seen and examined. Chart reviewed and case discussed with RN and Dr. ordonez. The patient continues to be in atrial fibrillation early this morning with a rate in the 150s. The patient was placed on BiPAP overnight due to respiratory distress Review of Systems 10-point ROS is otherwise unremarkable Physical Examination - Vital Signs Temperature: 97.0 F Blood Pressure: 112/97 Pulse: 167 Respirations: 17 Pulse Ox (%): 93 - Physical Exam General: Other (Intubated, agitated) HEENT: Atraumatic, PERRLA, EOMI Neck: Supple, JVD not distended Respiratory: Diminished, Other (wheezing, tachypnea) Cardiovascular: Irregular heart rate/rhythm (Irregularly irregular) Assessment And Plan - Plan A 72-year-old male with: 1. Sepsis, improving, secondary to pneumonia. We will continue IV antibiotics with cefepime and vancomycin due to risk of methicillin-resistant Staphylococcus aureus and gram-negative pneumonia. Appreciate Dr. Muñiz's input. 2. Right upper lobe pneumonia. Antibiotics adjusted. Cultures are negative to date. Pending Speech Therapy evaluation. Possible gram-negative pneumonia. 3. New onset atrial fibrillation with rapid ventricular response. The patient has been started on Betapace by Dr. Redmond and need cardioversion in a.m. We will start on Lovenox for anticoagulation and switch over to oral anticoagulants before discharge. 4. Stage I right upper lobe lung cancer status post radiation and chemotherapy. The patient sees Dr. Mitchell. 5. Essential hypertension, stable. 6. Acute respiratory distress with hypoxia, requiring BiPAP, secondary to pneumonia and atrial fibrillation. 7. Chronic obstructive pulmonary disease, chronic bronchitis. We will continue nebulizer treatments, switch to Xopenex, and resume Symbicort. 8. Overweight, BMI 29.9. 9. Gastrointestinal and deep venous thrombosis prophylaxis with PPI and Lovenox. Plan: continue to monitor in ICU, electively intubate as pt is fatiguing and not improving on BIPAP. Possible cardioversion tomorrow.
[2018-06-14] MEDS ORDERED: DIGOXIN 0.25 MG/ML AMP IV ONE (19:35)
[2018-06-14] MEDS ORDERED: DIGOXIN 0.25 MG/ML AMP ONE (20:22)
[2018-06-14] MEDS: ATORVASTATIN 40 MG TAB PO SCH (21:48)
[2018-06-14] MEDS: CYCLOBENZAPRINE 10 MG TAB PO SCH (21:48)
[2018-06-15] MEDS ORDERED: DIGOXIN 0.25 MG/ML AMP IV ONE (02:00)
[2018-06-15] MEDS: LEVALBUTEROL 1.25 MG/3 ML NEB NEB SCH ×4 (02:28→20:18)
[2018-06-15] MEDS: IPRATROPIUM BROM 0.5MG/2.5ML NEB SCH ×4 (02:28→20:19)
[2018-06-15 05:28] LABS: Absolute Lymphocytes (CBC) 0.4 K/uL (0.7-4.9); Absolute Monocytes 0.7 K/uL (0.1-1.3); Absolute Neutrophil 6.4 K/uL (1.8-8.0); Basophils % 0.1 % (0-1.3); Hematocrit 30.5 % (39.6-49.0); Lymphocytes % 5.3 % (15.3-44.8); MPV 8.4 fL (7.6-11.3); Monocytes % 8.9 % (3.3-12.3); RBC Red Blood Cell Count 3.28 M/uL (4.33-5.43)
[2018-06-15 05:30] LABS: BUN Blood Urea Nitrogen 29 mg/dL (7-18); Bicarbonate 25 mmol/L (21-32); Glucose Level 143 mg/dL (74-106); Magnesium 2.5 mg/dL (1.8-2.4); Potassium 4.8 mmol/L (3.5-5.1); Sodium Level 139 mmol/L (136-145)
[2018-06-15] MEDS: SOTALOL HCL 80 MG TAB PO SCH ×2 (06:00→17:39)
[2018-06-15] MEDS: ARFORMOTEROL TARTRATE 15 MCG/2 ML VIAL.NEB NEB SCH ×2 (07:40→20:18)
--- NOTE | 2018-06-15 08:20 | P.PN ---
Subjective Date of Service: 06/15/18 Chief Complaint: Pneumonia respiratory distress Subjective: Improving (Patient is doing better he is alert responsive cooperating awaiting cardioversion and not tolerate SIMV yesterday) Review of Systems is unable to be obtained Physical Examination - Vital Signs Temperature: 97 F Blood Pressure: 132/81 Pulse: 118 Respirations: 16 Pulse Ox (%): 97 - Physical Exam General: Alert, Cooperative Neck: Supple Respiratory: Clear to auscultation bilaterally, Diminished Cardiovascular: No edema, Irregular heart rate/rhythm Assessment & Plan - Problems (Diagnosis) (1) Pneumonia Onset Date: 06/13/18 Current Visit: Yes Status: Acute Plan: Patient pneumonia is improving Qualifiers: Pneumonia type: due to unspecified organism Laterality: right (2) Respiratory failure Current Visit: Yes Status: Acute Plan: Patient is 72 years of age was intubated is currently on mechanical ventilation with COPD and pneumonia in addition to his lung cancer plan to cardiovert him and try and wean him off the ventilator he did not tolerate SIMV yesterday all cultures are negative chemistries reviewed on 40% oxygen hemodynamically stable Qualifiers: Respiratory failure complication: hypoxia and hypercapnia
--- NOTE | 2018-06-15 08:31 | ECHO ---
HEIGHT: 5 ft 7 in WEIGHT: 200 lb 1.6 oz DATE OF STUDY: 06/15/[address]: Dwain Keane MD 2-DIMENSIONAL: YES M.MODE: YES DOPPLER: YES COLOR FLOW: YES TDS: YES PORTABLE: NO DEFINITY: NO BUBBLE STUDY: NO DIAGNOSIS: NEW ONSET OF ATRIAL FIBRILLATION CARDIAC HISTORY: CATHERIZATION: SURGERY: PROSTHETIC VALVE: PACEMAKER: MEASUREMENTS (cm) DIASTOLIC (NORMALS) SYSTOLIC (NORMALS) IVSd 1.0 (0.6-1.2) LA Diam (1.9-4.0) LVEF 60% LVIDd 3.5 (3.5-5.7) LVIDs 2.4 (2.0-3.5) %FS 31% LVPWd 1.1 (0.6-1.2) Ao Diam 3.2 (2.0-3.7) 2 DIMENSIONAL ASSESSMENT: RIGHT ATRIUM: NORMAL LEFT ATRIUM: NORMAL RIGHT VENTRICLE: NORMAL LEFT VENTRICLE: NORMAL TRICUSPID VALVE: NORMAL MITRAL VALVE: NORMAL PULMONIC VALVE: NORMAL AORTIC VALVE: NORMAL PERICARDIAL EFFUSION: NONE AORTIC ROOT: NORMAL LEFT VENTRICULAR WALL MOTION: NORMAL DOPPLER/COLOR FLOW: NORMAL COMMENTS: TECHNICALLY DIFFICULT STUDY. ATRIAL FIBRILLATION. GROSSLY NORMAL LEFT VENTRICULAR SIZE AND FUNCTION. NO EFFUSION. TECHNOLOGIST: BHAVIN CAVAZOS
--- NOTE | 2018-06-15 09:06 | RAD REPORT ---
EXAM DESCRIPTION: Alysa Single View06/15/2018 6:43 am CLINICAL HISTORY: Chest pain COMPARISON: June 14, 2018 FINDINGS: An endotracheal tube has its tip in the mid to distal thoracic esophagus. The endotrachea l tube has its tip well above the sidra Mild improvement in the upper right lung opacities. Right lung volume loss persists. Right perihilar mass is unchanged IMPRESSION: An endotracheal tube has its tip in the mid to distal thoracic esophagus Patient's nurse Cassia was notified 9 a.m. June 15, 2018
[2018-06-15] MEDS: FOLIC ACID 1 MG TABLET PO SCH (09:08)
[2018-06-15] MEDS: METHYLPREDNISOLONE 40 MG INJ IV SCH ×2 (09:08→21:31)
[2018-06-15] MEDS: CEFEPIME/SWI 1gm 1 GM/10 ML SYR IV SCH ×2 (09:08→21:28)
[2018-06-15] MEDS: ENOXAPARIN 100 MG/ML SYR SQ SCH ×2 (09:08→21:31)
[2018-06-15] MEDS: VANCOMYCIN 1.5 GM in NA CHLORIDE 0.9% 500 ML IVPB SCH ×2 (09:08→21:28)
[2018-06-15] MEDS: FINASTERIDE 5 MG TAB PO SCH (09:08)
[2018-06-15] MEDS: FAMOTIDINE 20 MG/2 ML VIAL IV SCH ×2 (09:08→21:31)
--- NOTE | 2018-06-15 10:11 | RAD REPORT ---
EXAM DESCRIPTION: RAD - Chest Single View - 06/15/2018 9:27 am CLINICAL HISTORY: ett placement Chest pain. COMPARISON: Chest Single View dated 06/15/2018; Chest Single View dated 06/14/2018; Chest Single View dated 06/13/2018; Chest Single View dated 06/12/2018 FINDINGS: Portable technique limits examination quality. Tip of the ET tube is above the sidra. The enteric tube tip is at the level of the mid to lower esop hagus. Right midlung linear opacity appears unchanged. Heart size is normal.
[2018-06-15] MEDS: PROPOFOL 1,000 MG/100 ML VIAL IV PRN ×2 (14:00→23:54)
--- NOTE | 2018-06-15 14:01 | EKG ---
Test Date: 2018-06-15 Test Time: 10:05:48 Immunopathologist: ZOË Stephens MEASUREMENT RESULTS: Intervals: Rate: 80 VT: 124 QRSD: 74 QT: 316 QTc: 364 [place]: P: 58 VT: 124 QRS: 48 T: 51 INTERPRETIVE STATEMENTS: Normal sinus rhythm Normal ECG Compared to ECG 06/13/2018 08:16:18 Sinus tachycardia no longer present T-wave abnormality no longer present Electronically Signed On 06-15-18 14:01:04 LADLE POURER by Adriano Redmond
[2018-06-15] MEDS: LORazepam 2 MG/ML VIAL IV PRN (15:56)
[2018-06-15] MEDS ORDERED: FUROSEMIDE 20 MG/ 2ML VIAL IV ONE (16:05)
--- NOTE | 2018-06-15 18:51 | P.PN ---
Subjective Date of Service: 06/15/18 Chief Complaint: Pneumonia respiratory distress The patient is seen and examined. Chart reviewed and case discussed with RN and Dr. ordonez. The patient continues to be in atrial fibrillation early this morning with a rate in the 150s. The patient was placed on BiPAP overnight due to respiratory distress Physical Examination - Vital Signs Temperature: 97 F Blood Pressure: 123/83 Pulse: 91 Respirations: 15 Pulse Ox (%): 100 - Physical Exam Respiratory: Other (intubated) Assessment And Plan - Plan A 72-year-old male with: 1. Sepsis, improving, secondary to pneumonia. We will continue IV antibiotics with cefepime and vancomycin due to risk of methicillin-resistant Staphylococcus aureus and gram-negative pneumonia. Appreciate Dr. Muñiz's input. 2. Right upper lobe pneumonia. Antibiotics adjusted. Cultures are negative to date. Pending Speech Therapy evaluation. Possible gram-negative pneumonia. 3. New onset atrial fibrillation with rapid ventricular response. The patient has been started on Betapace by Dr. Redmond and cardioverted today. We will start on Lovenox for anticoagulation and switch over to oral anticoagulants before discharge. 4. Stage I right upper lobe lung cancer status post radiation and chemotherapy. The patient sees Dr. Mitchell. 5. Essential hypertension, stable. 6. Acute respiratory distress with hypoxia, requiring BiPAP, secondary to pneumonia and atrial fibrillation. 7. Chronic obstructive pulmonary disease, chronic bronchitis. We will continue nebulizer treatments, switch to Xopenex, and resume Symbicort. 8. Overweight, BMI 29.9. 9. Gastrointestinal and deep venous thrombosis prophylaxis with PPI and Lovenox. Plan: continue to monitor in ICU, electively intubate as pt is fatiguing and not improving on BIPAP. cardioverted today, wean as toelrated.
[2018-06-15] MEDS: FENTANYL CITR 100 MCG/2 ML IV PRN (18:54)
--- NOTE | 2018-06-15 21:03 | OP ---
Surgeon: Adriano Redmond MD Procedure: Direct current cardioversion. Indication: Atrial flutter, refractory to medications. Procedure In Detail: The patient gave informed consent. He was intubated in the ICU because of his pneumonia. He had been on a propofol drip, but we gave a bolus of 10 cc of propofol for adequate lev el of sedation. Anterior-posterior paddles were placed on his chest. A single shock of 50 joules wa s delivered synchronized to the QRS complex. This resulted in sinus rhythm. No complications from t he procedure. MARCIE/COLIN Voice ID: [id number] Report ID: [id number]
[2018-06-15] MEDS: ATORVASTATIN 40 MG TAB PO SCH (21:30)
[2018-06-15] MEDS: CYCLOBENZAPRINE 10 MG TAB PO SCH (21:31)
[2018-06-16] MEDS: LEVALBUTEROL 1.25 MG/3 ML NEB NEB SCH ×4 (02:45→19:54)
[2018-06-16] MEDS: IPRATROPIUM BROM 0.5MG/2.5ML NEB SCH ×4 (02:45→19:54)
[2018-06-16] MEDS: SOTALOL HCL 80 MG TAB PO SCH ×2 (06:18→17:56)
[2018-06-16] MEDS: FENTANYL CITR 100 MCG/2 ML IV PRN (06:19)
--- NOTE | 2018-06-16 07:05 | RAD REPORT ---
EXAM DESCRIPTION: RAD - Chest Single View - 06/16/2018 6:34 am CLINICAL HISTORY: Pneumonia, intubation COMPARISON: June 15 TECHNIQUE: AP portable chest image was obtained 0630 hours . FINDINGS: Endotracheal tube and enteric tube are unchanged. Left hemithorax remains clear. Volume re duced right hemithorax also stable. Opacification remains along the inferior right upper lobe abuttin g the fissure. Heart size is normal. No pneumothorax or enlarging pleural effusion. No acute bony abn ormality seen. No acute aortic findings suspected. IMPRESSION: Stable chest from June 15.
[2018-06-16] MEDS: LORazepam 2 MG/ML VIAL IV PRN (07:59)
[2018-06-16] MEDS: ARFORMOTEROL TARTRATE 15 MCG/2 ML VIAL.NEB NEB SCH ×2 (08:10→19:54)
[2018-06-16] MEDS: VANCOMYCIN 1.5 GM in NA CHLORIDE 0.9% 500 ML IVPB SCH (09:00)
[2018-06-16] MEDS: FINASTERIDE 5 MG TAB PO SCH (09:35)
[2018-06-16] MEDS: FOLIC ACID 1 MG TABLET PO SCH (09:35)
[2018-06-16] MEDS: CEFEPIME/SWI 1gm 1 GM/10 ML SYR IV SCH ×2 (09:35→20:41)
[2018-06-16] MEDS: ENOXAPARIN 100 MG/ML SYR SQ SCH (09:35)
[2018-06-16] MEDS: METHYLPREDNISOLONE 40 MG INJ IV SCH (09:36)
[2018-06-16] MEDS: FAMOTIDINE 20 MG/2 ML VIAL IV SCH (09:36)
[2018-06-16 13:10] LABS: Blood Gas Oxyhemoglobin 87.5 % (94-97); Blood O2 Saturation 88.7 % (92-98.5)
--- NOTE | 2018-06-16 13:43 | PN ---
Date of Progress Note: 06/16/2018 Mr. Matthew had been followed by Dr. Redmond and myself for atrial fibrillation. He was placed on B etapace 80 mg b.i.d. for about 2 days, did not cardiovert yesterday. He received a shock with cardio version and converted back to sinus rhythm. Today, he remains in sinus rhythm. He remains on Betapa ce. He remains on respiratory treatment. No cardiac complaint. We will continue his Betapace and rhianna manning decisions regarding anticoagulation down the road. GAURI/COLIN Voice ID: [id number] Report ID: [id number]
[2018-06-16] MEDS ORDERED: VANCOMYCIN 1.5 GM in NA CHLORIDE 0.9% 500 ML IVPB SCH (15:00)
--- NOTE | 2018-06-16 15:09 | P.PN ---
Subjective Date of Service: 06/16/18 Chief Complaint: Respiratory failure Patient passes spontaneous breathing trial today and was extubated is currently still wheezing still having some respiratory difficulty Review of Systems General: Weakness Respiratory: Cough, Shortness of Breath Physical Examination - Vital Signs Temperature: 97.2 F Blood Pressure: 162/107 Pulse: 88 Respirations: 27 Pulse Ox (%): 92 - Physical Exam General: Moderate distress Respiratory: Expiratory wheezes Cardiovascular: No edema, Normal S1 S2 Assessment & Plan - Problems (Diagnosis) (1) Respiratory failure Current Visit: Yes Status: Acute Plan: Patient is 72 years of age was intubated is currently on mechanical ventilation with COPD and pneumonia in addition to his lung cancer plan to cardiovert him and try and wean him off the ventilator he did not tolerate SIMV yesterday all cultures are negative chemistries reviewed on 40% oxygen hemodynamically stable Qualifiers: Respiratory failure complication: hypoxia and hypercapnia (2) COPD exacerbation Current Visit: Yes Status: Acute Plan: Patient is 72 years of age with a history of lung cancer admitted with COPD exacerbation chest x-ray shows an improvement altered loss on the right side Dc vancomycin cultures are so far negative patient's blood pressure is elevated white count is back to normal
[2018-06-16] MEDS ORDERED: APIXABAN 5 MG TABLET PO SCH (15:30)
[2018-06-16] MEDS: LOSARTAN POTASSIUM 50 MG TABLET PO SCH (16:07)
[2018-06-16] MEDS: AMLODIPINE 10 MG TAB PO SCH (16:07)
[2018-06-16] MEDS: predniSONE 20 MG TAB PO SCH ×2 (16:07→20:41)
--- NOTE | 2018-06-16 16:31 | P.PN ---
Subjective Date of Service: 06/16/18 Chief Complaint: Respiratory failure Subjective: No C/O voiced The patient is seen and examined. Chart reviewed and case discussed with RN and Dr. ordonez and Dr. Muñiz. He is status post cardioversion yesterday, continues to be normal sinus rhythm. Patient passed SBT and Patient is now extubated, still having some acute respiratory distress Review of Systems 10-point ROS is otherwise unremarkable Physical Examination - Vital Signs Temperature: 97.2 F Blood Pressure: 149/102 Pulse: 90 Respirations: 27 Pulse Ox (%): 92 - Physical Exam General: Alert, Moderate distress HEENT: Atraumatic, PERRLA, EOMI Neck: Supple, JVD not distended Respiratory: Dull, Expiratory wheezes Cardiovascular: Regular rate/rhythm, Normal S1 S2 Gastrointestinal: Normal bowel sounds, No tenderness Musculoskeletal: No tenderness Integumentary: No rashes Neurological: Normal speech, Normal tone, Normal affect Lymphatics: No axilla or inguinal lymphadenopathy Assessment And Plan - Plan A 72-year-old male with: 1. Sepsis, improving, secondary to pneumonia. We will continue IV antibiotics with cefepime. Discontinue vancomycin. Appreciate Dr. Muñiz's input. 2. Right upper lobe pneumonia. Antibiotics adjusted. Cultures are negative to date. 3. New onset atrial fibrillation with rapid ventricular response. He has been in normal sinus rhythm since cardioversion yesterday. Continue anticoagulation with Lovenox at this time. Will switch over to oral anticoagulation prior to discharge. 4. Stage I right upper lobe lung cancer status post radiation and chemotherapy. The patient sees Dr. Mitchell. Case discussed with Dr. Mitchell 5. Essential hypertension, stable. 6. Acute respiratory distress with hypoxia, secondary to pneumonia and atrial fibrillation. Status post intubation, now extubated. Still requiring BiPAP 7. Chronic obstructive pulmonary disease, chronic bronchitis. We will continue nebulizer treatments, switch to Xopenex, and resume Symbicort. 8. Overweight, BMI 29.9. 9. Gastrointestinal and deep venous thrombosis prophylaxis with PPI and Lovenox. Plan: continue to monitor in ICU, pending symptomatic improvement. Time Spent Managing PTS Care (In Minutes): 45
[2018-06-16] MEDS: CYCLOBENZAPRINE 10 MG TAB PO SCH (20:40)
[2018-06-16] MEDS: ATORVASTATIN 40 MG TAB PO SCH (20:41)
[2018-06-17] MEDS: IPRATROPIUM BROM 0.5MG/2.5ML NEB SCH ×4 (01:41→19:42)
[2018-06-17] MEDS: LEVALBUTEROL 1.25 MG/3 ML NEB NEB SCH ×4 (01:41→19:42)
[2018-06-17 05:36] LABS: BUN Blood Urea Nitrogen 28 mg/dL (7-18); Bicarbonate 31 mmol/L (21-32); Glucose Level 133 mg/dL (74-106); Magnesium 2.1 mg/dL (1.8-2.4); Phosphorus 3.9 mg/dL (2.5-4.9); Potassium 4.6 mmol/L (3.5-5.1); Sodium Level 138 mmol/L (136-145)
[2018-06-17] MEDS: SOTALOL HCL 80 MG TAB PO SCH ×2 (06:20→17:24)
[2018-06-17] MEDS: ARFORMOTEROL TARTRATE 15 MCG/2 ML VIAL.NEB NEB SCH ×2 (07:59→19:42)
[2018-06-17] MEDS: FINASTERIDE 5 MG TAB PO SCH (08:19)
[2018-06-17] MEDS: FOLIC ACID 1 MG TABLET PO SCH (08:20)
[2018-06-17] MEDS: AMLODIPINE 10 MG TAB PO SCH (08:20)
[2018-06-17] MEDS: predniSONE 20 MG TAB PO SCH ×2 (08:20→20:23)
[2018-06-17] MEDS: LOSARTAN POTASSIUM 50 MG TABLET PO SCH (08:20)
[2018-06-17] MEDS: APIXABAN 5 MG TABLET PO SCH ×2 (08:20→20:23)
[2018-06-17] MEDS: CEFEPIME/SWI 1gm 1 GM/10 ML SYR IV SCH (08:21)
--- NOTE | 2018-06-17 09:41 | P.PN ---
Subjective Date of Service: 06/16/18 Subjective: Other ( patient was extubated. After extubation was tachypneic. He is still requiring BiPAP support. However, his respiratory rate has improved. Will continue to monitor closely) Review of Systems 10-point ROS is otherwise unremarkable Physical Examination - Vital Signs Temperature: 97 F Blood Pressure: 154/90 Pulse: 62 Respirations: 24 Pulse Ox (%): 100 - Physical Exam General: Alert, In no apparent distress, Oriented x2 HEENT: Atraumatic, PERRLA, EOMI Neck: Supple, JVD not distended Respiratory: Diminished, Expiratory wheezes Cardiovascular: Regular rate/rhythm, Normal S1 S2, No murmurs Gastrointestinal: Normal bowel sounds, Soft and benign, Non-distended, No tenderness Musculoskeletal: No clubbing, No tenderness Neurological: Other ( moving all extremities; no distress) - Studies Medications List Reviewed: Yes Assessment & Plan - Problems (Diagnosis) (1) COPD exacerbation Current Visit: Yes Status: Acute (2) Pneumonia Onset Date: 06/13/18 Current Visit: Yes Status: Acute Qualifiers: Pneumonia type: due to unspecified organism Laterality: right (3) Respiratory failure Current Visit: Yes Status: Acute Qualifiers: Respiratory failure complication: hypoxia and hypercapnia - Plan patient was extubated today. He was tachypneic after extubation; however, his respiratory status has improved. Continue with current plan of care. He should be able to transfer to the floor if he continues to improve. Repeat labs and chest x-ray along with ABG in the morning. - Advance Directives Does patient have a Living Will: No Does patient have a Durable POA for Healthcare: No - Code Status/Comfort Care Code Status Assessed: Yes Code Status: Full Code Critical Care: Yes Time Spent Managing PTS Care (In Minutes): 35
--- NOTE | 2018-06-17 12:39 | P.PN ---
Subjective Date of Service: 06/17/18 Chief Complaint: Respiratory failure Patient is still requiring BiPAP was extubated yesterday for rapid desaturation he is alert responsive cooperative Review of Systems General: Weakness Respiratory: Shortness of Breath Physical Examination - Vital Signs Temperature: 97 F Blood Pressure: 154/90 Pulse: 62 Respirations: 24 Pulse Ox (%): 100 - Physical Exam General: Alert, Moderate distress HEENT: Atraumatic Neck: Supple Respiratory: Expiratory wheezes Cardiovascular: No edema, Regular rate/rhythm - Studies Microbiology Data (last 24 hrs): 06/12/18 11:04 Blood - Blood Aerobic Blood Culture - Final No growth in 5 days. 06/12/18 11:04 Blood - Blood Anaerobic Blood Culture - Final 06/12/18 10:39 Blood - Blood Aerobic Blood Culture - Final No growth in 5 days. 06/12/18 10:39 Blood - Blood Anaerobic Blood Culture - Final No growth in 5 days. Medications List Reviewed: Yes Assessment & Plan - Problems (Diagnosis) (1) Respiratory failure Current Visit: Yes Status: Acute Plan: Patient was extubated yesterday still requiring BiPAP consider LTAC rate sat to 90% Qualifiers: Respiratory failure complication: hypoxia and hypercapnia (2) COPD exacerbation Current Visit: Yes Status: Acute Plan: Patient on maximum bronchodilator therapy change to p.o. Jade Collins Maxipime cultures are all negative
--- NOTE | 2018-06-17 17:29 | P.PN ---
Subjective Date of Service: 06/17/18 Chief Complaint: Respiratory failure Subjective: No new changes The patient is seen and examined. Chart reviewed and case discussed with RN and Dr. ordonez and Dr. Muñiz. He is status post cardioversion yesterday, continues to be normal sinus rhythm. Patient passed SBT and Patient is now extubated, still having some acute respiratory distress. Continues to be on BiPAP Review of Systems 10-point ROS is otherwise unremarkable Physical Examination - Vital Signs Temperature: 97 F Blood Pressure: 158/98 Pulse: 86 Respirations: 25 Pulse Ox (%): 100 - Physical Exam General: Alert, In no apparent distress, Oriented x3 HEENT: Atraumatic, PERRLA, EOMI Neck: Supple, JVD not distended Respiratory: Diminished, Expiratory wheezes, Inspiratory wheezes, Other ( Continues to be on bipap) Cardiovascular: Regular rate/rhythm, Normal S1 S2 Gastrointestinal: Normal bowel sounds, No tenderness Musculoskeletal: No tenderness Integumentary: No rashes Neurological: Normal speech, Normal tone, Normal affect Lymphatics: No axilla or inguinal lymphadenopathy - Studies Microbiology Data (last 24 hrs): 06/12/18 11:04 Blood - Blood Aerobic Blood Culture - Final No growth in 5 days. 06/12/18 11:04 Blood - Blood Anaerobic Blood Culture - Final 06/12/18 10:39 Blood - Blood Aerobic Blood Culture - Final No growth in 5 days. 06/12/18 10:39 Blood - Blood Anaerobic Blood Culture - Final No growth in 5 days. Medications List Reviewed: Yes Assessment And Plan - Plan A 72-year-old male with: 1. Sepsis, improving, secondary to pneumonia. We will continue IV antibiotics with cefepime. Discontinue vancomycin. Appreciate Dr. Muñiz's input. 2. Right upper lobe pneumonia. Antibiotics adjusted. Cultures are negative to date. 3. New onset atrial fibrillation with rapid ventricular response. He has been in normal sinus rhythm since cardioversion yesterday. Continue anticoagulation with Lovenox at this time. Will switch over to oral anticoagulation prior to discharge. 4. Stage I right upper lobe lung cancer status post radiation and chemotherapy. The patient sees Dr. Mitchell. Case discussed with Dr. Mitchell 5. Essential hypertension, stable. 6. Acute respiratory distress with hypoxia, secondary to pneumonia and atrial fibrillation. Status post intubation, now extubated. Still requiring BiPAP 7. Chronic obstructive pulmonary disease, chronic bronchitis. We will continue nebulizer treatments, switch to Xopenex, and resume Symbicort. 8. Overweight, BMI 29.9. 9. Gastrointestinal and deep venous thrombosis prophylaxis with PPI and Lovenox. Plan: continue to monitor in ICU, pending symptomatic improvement. Social work involved for possible LTAC placement. Information given to the family, they will visit this weekend.
[2018-06-17] MEDS: ATORVASTATIN 40 MG TAB PO SCH (20:23)
[2018-06-17] MEDS: CYCLOBENZAPRINE 10 MG TAB PO SCH (20:24)
--- NOTE | 2018-06-18 00:46 | PN ---
Date of Progress Note: 06/17/2018 Mr. Matthew remains in the ICU. He had a cardioversion 2 days ago for atrial fibrillation, unrespo nsive to Betapace. He remains on Betapace 80 mg 1 p.o. b.i.d. QT is not prolonged. He remains in s inus rhythm. I would continue his present regimen. I will leave the decision regarding anticoagulat ion long-term to his primary care whenever he is ready to go home. For now, I will sign off his case and I will be available for questions if the need arises. GAURI/COLIN Voice ID: [id number] Report ID: [id number]
[2018-06-18] MEDS: IPRATROPIUM BROM 0.5MG/2.5ML NEB SCH ×4 (01:40→20:00)
[2018-06-18] MEDS: LEVALBUTEROL 1.25 MG/3 ML NEB NEB SCH ×4 (01:40→20:00)
[2018-06-18 06:00] LABS: Absolute Lymphocytes (CBC) 0.6 K/uL (0.7-4.9); Absolute Monocytes 0.8 K/uL (0.1-1.3); Absolute Neutrophil 22.6 K/uL (1.8-8.0); Basophils % 0.1 % (0-1.3); Hematocrit 33.3 % (39.6-49.0); Lymphocytes % 2.5 % (15.3-44.8); MPV 7.6 fL (7.6-11.3); Monocytes % 3.4 % (3.3-12.3); RBC Red Blood Cell Count 3.65 M/uL (4.33-5.43)
[2018-06-18] MEDS: SOTALOL HCL 80 MG TAB PO SCH ×2 (06:12→18:59)
[2018-06-18 06:25] LABS: BUN Blood Urea Nitrogen 20 mg/dL (7-18); Bicarbonate 30 mmol/L (21-32); Glucose Level 113 mg/dL (74-106); Potassium 4.1 mmol/L (3.5-5.1); Sodium Level 136 mmol/L (136-145)
[2018-06-18 06:37] LABS: Toxic Granulation 2+
[2018-06-18 06:38] LABS: Blood Morphology Comment NOT SEEN (NOT SEEN)
[2018-06-18 07:01] LABS: Platelet Estimate ADEQ
[2018-06-18] MEDS: ARFORMOTEROL TARTRATE 15 MCG/2 ML VIAL.NEB NEB SCH ×2 (07:34→20:00)
[2018-06-18] MEDS: FINASTERIDE 5 MG TAB PO SCH (08:43)
[2018-06-18] MEDS: predniSONE 20 MG TAB PO SCH ×2 (08:43→20:28)
[2018-06-18] MEDS: levoFLOXacin 500 MG TAB PO SCH (08:43)
[2018-06-18] MEDS: FOLIC ACID 1 MG TABLET PO SCH (08:44)
[2018-06-18] MEDS: LOSARTAN POTASSIUM 50 MG TABLET PO SCH (08:44)
[2018-06-18] MEDS: APIXABAN 5 MG TABLET PO SCH ×2 (08:44→20:28)
[2018-06-18] MEDS: AMLODIPINE 10 MG TAB PO SCH (08:44)
--- NOTE | 2018-06-18 08:54 | RAD REPORT ---
EXAM DESCRIPTION: Alysa Single View06/18/2018 6:30 am CLINICAL HISTORY: Shortness of breath COMPARISON: June 16 FINDINGS: No change has occurred in the right upper lobe opacity. Left lung appears clear. The hear t is normal size. Tubes have been removed IMPRESSION: No change in a right upper lobe opacity probably representing a combination of atelecta sis and pneumonia
[2018-06-18] MEDS: ROFLUMILAST 500 MCG TABLET PO SCH (09:00)
[2018-06-18] MEDS ORDERED: ENOXAPARIN 40 MG/0.4 ML SQ SCH (09:00)
--- NOTE | 2018-06-18 10:53 | P.PN ---
Subjective Date of Service: 06/18/18 Chief Complaint: Respiratory failure Patient has a slight improvement he still requiring BiPAP although he does not desaturate he becomes very tachypneic still wheezing predominantly on the right side Review of Systems General: Weakness Respiratory: Cough, Shortness of Breath Physical Examination - Vital Signs Temperature: 97 F Blood Pressure: 154/77 Pulse: 69 Respirations: 19 Pulse Ox (%): 97 - Physical Exam General: Alert, Moderate distress Respiratory: Expiratory wheezes Cardiovascular: No edema, Regular rate/rhythm - Studies Microbiology Data (last 24 hrs): 06/12/18 11:04 Blood - Blood Aerobic Blood Culture - Final No growth in 5 days. 06/12/18 11:04 Blood - Blood Anaerobic Blood Culture - Final 06/12/18 10:39 Blood - Blood Aerobic Blood Culture - Final No growth in 5 days. 06/12/18 10:39 Blood - Blood Anaerobic Blood Culture - Final No growth in 5 days. Medications List Reviewed: Yes Assessment & Plan - Problems (Diagnosis) (1) COPD exacerbation Current Visit: Yes Status: Acute Plan: Patient admitted with COPD exacerbation respiratory failure his chest x-ray shows some volume loss in the right side no evidence of pain and clinically of an infection his white count did increase today will continue to monitor he is on maximum bronchodilators I have added Daliresp today patient's blood pressure is little elevated trial of Lasix patient's kidney function is normal saturation satisfactory in 4 years of nasal cannula oxygen need Lovenox for DVT prophylaxis
[2018-06-18] MEDS: FUROSEMIDE 20 MG/ 2ML VIAL IV SCH (11:07)
[2018-06-18] MEDS ORDERED: BISACODYL E.C. 5 MG TAB PO ONE (13:27)
[2018-06-18 17:14] LABS: Absolute Lymphocytes (CBC) 0.7 K/uL (0.7-4.9); Absolute Neutrophil 26.1 K/uL (1.8-8.0); Basophils % 0.2 % (0-1.3); Hematocrit 36.6 % (39.6-49.0); Lymphocytes % 2.5 % (15.3-44.8); MPV 7.1 fL (7.6-11.3); Monocytes % 3.5 % (3.3-12.3); RBC Red Blood Cell Count 4.02 M/uL (4.33-5.43)
[2018-06-18] MEDS ORDERED: BISACODYL E.C. 5 MG TAB PO PRN (18:02)
--- NOTE | 2018-06-18 18:18 | P.PN ---
Subjective Date of Service: 06/18/18 Chief Complaint: Respiratory failure Subjective: No new changes The patient is seen and examined. Chart reviewed and case discussed with RN and Dr. ordonez and Dr. Muñiz. He is status post cardioversion yesterday, continues to be normal sinus rhythm. Patient passed SBT and Patient is now extubated, still having some acute respiratory distress. Continues to be on BiPAP Review of Systems 10-point ROS is otherwise unremarkable Physical Examination - Vital Signs Temperature: 99.5 F Blood Pressure: 148/102 Pulse: 81 Respirations: 22 Pulse Ox (%): 96 - Studies Medications List Reviewed: Yes Assessment And Plan - Plan A 72-year-old male with: 1. Sepsis, improving, secondary to pneumonia. We will continue IV antibiotics with cefepime. Discontinue vancomycin. Appreciate Dr. Muñiz's input. 2. Right upper lobe pneumonia. Antibiotics adjusted. Cultures are negative to date. 3. New onset atrial fibrillation with rapid ventricular response. He has been in normal sinus rhythm since cardioversion yesterday. Continue anticoagulation with Lovenox at this time. Will switch over to oral anticoagulation prior to discharge. 4. Stage I right upper lobe lung cancer status post radiation and chemotherapy. The patient sees Dr. Mitchell. Case discussed with Dr. Mitchell 5. Essential hypertension, stable. 6. Acute respiratory distress with hypoxia, secondary to pneumonia and atrial fibrillation. Status post intubation, now extubated. Still requiring BiPAP 7. Chronic obstructive pulmonary disease, chronic bronchitis. We will continue nebulizer treatments, switch to Xopenex, and resume Symbicort. 8. Overweight, BMI 29.9. 9. Gastrointestinal and deep venous thrombosis prophylaxis with PPI and Lovenox. Plan: continue to monitor in ICU, pending symptomatic improvement. Social work involved for possible LTAC placement. Information given to the family, they will visit this weekend.
[2018-06-18] MEDS ORDERED: SODIUM CHLORIDE 0.9% 10ML INJ IV PRN (19:28)
[2018-06-18] MEDS: PANTOPRAZOLE 40 MG INJ IVP SCH (20:27)
[2018-06-18] MEDS: ATORVASTATIN 40 MG TAB PO SCH (20:27)
[2018-06-18] MEDS: CYCLOBENZAPRINE 10 MG TAB PO SCH (20:28)
[2018-06-18] MEDS: TRAZODONE 50 MG TABLET PO PRN (21:11)
[2018-06-19] MEDS: LEVALBUTEROL 1.25 MG/3 ML NEB NEB SCH ×4 (01:55→19:34)
[2018-06-19] MEDS: IPRATROPIUM BROM 0.5MG/2.5ML NEB SCH ×4 (01:55→19:35)
[2018-06-19 05:33] LABS: Absolute Lymphocytes (CBC) 0.5 K/uL (0.7-4.9); Absolute Monocytes 0.7 K/uL (0.1-1.3); Absolute Neutrophil 23.3 K/uL (1.8-8.0); Eosinophils % 0.6 % (0-4.4); Hematocrit 35.9 % (39.6-49.0); Lymphocytes % 2.2 % (15.3-44.8); MPV 7.4 fL (7.6-11.3)
[2018-06-19 05:51] LABS: BUN Blood Urea Nitrogen 17 mg/dL (7-18); Bicarbonate 31 mmol/L (21-32); Glucose Level 119 mg/dL (74-106); Potassium 4.2 mmol/L (3.5-5.1); Sodium Level 135 mmol/L (136-145)
[2018-06-19] MEDS: SOTALOL HCL 80 MG TAB PO SCH ×2 (05:59→17:06)
[2018-06-19] MEDS: ROFLUMILAST 500 MCG TABLET PO SCH (08:33)
[2018-06-19] MEDS: FOLIC ACID 1 MG TABLET PO SCH (08:33)
[2018-06-19] MEDS: FINASTERIDE 5 MG TAB PO SCH (08:33)
[2018-06-19] MEDS: APIXABAN 5 MG TABLET PO SCH ×2 (08:33→20:08)
[2018-06-19] MEDS: predniSONE 20 MG TAB PO SCH ×2 (08:33→20:08)
[2018-06-19] MEDS: levoFLOXacin 500 MG TAB PO SCH (08:33)
[2018-06-19] MEDS: AMLODIPINE 10 MG TAB PO SCH (08:33)
[2018-06-19] MEDS: LOSARTAN POTASSIUM 50 MG TABLET PO SCH (08:33)
[2018-06-19] MEDS: PANTOPRAZOLE 40 MG INJ IVP SCH ×2 (08:34→20:07)
[2018-06-19] MEDS: FUROSEMIDE 20 MG/ 2ML VIAL IV SCH (08:35)
[2018-06-19] MEDS: ARFORMOTEROL TARTRATE 15 MCG/2 ML VIAL.NEB NEB SCH ×2 (09:07→19:35)
--- NOTE | 2018-06-19 09:49 | RAD REPORT ---
EXAM DESCRIPTION: CT - Thorax Wo Con - 06/19/2018 8:56 am CLINICAL HISTORY: Pneumonia, abnormal WBC count COMPARISON: Chest film June 18, CT chest February 2018 TECHNIQUE: Axial 5 mm thick images of the chest were obtained without IV contrast. All CT scans are performed using dose optimization technique as appropriate and may include automated exposure control or mA/KV adjustment according to patient size. FINDINGS: Left lung field is clear of any significant parenchymal process. No pneumothorax or pleura l effusion. Minimal scarring changes are present including the superior most aspect left lower lobe s uperior segment. There is some bronchial wall thickening on the left. Right-sided bronchial wall thic kening is more pronounced. Granulomatous calcifications are present. There is a combination of infilt rate and atelectasis in the inferior aspect right upper lobe abutting the minor fissure. Minimal scar ring atelectasis in the right base where there is also a small right pleural effusion. No pleural bas ed mass or pneumothorax. No abnormal mediastinal or hilar masses or lymphadenopathy seen. Aorta and pulmonary arterial tree as sessment is limited in the absence of contrast. Aortic and Coronary artery calcifications are present . No cardiomegaly or pericardial effusion. Assessment is limited in the absence of IV contrast. No chest wall mass or abnormal axillary lymphadenopathy. IMPRESSION: Atelectasis and minimal pneumonia changes are present in the base of the right upper lob e abutting the minor fissure. Patient has bilateral bronchial wall thickening changes. This can be secondary to chronic obstructiv e lung disease and/or viral infectious process. Minimal right lung base pleural effusion.
[2018-06-19 15:21] LABS: Urine Appearance CLEAR; Urine Bilirubin NEGATIVE (NEG); Urine Blood 2+ (NEG); Urine Color YELLOW; Urine Glucose NEGATIVE (NEG); Urine Protein NEGATIVE (NEG)
[2018-06-19 15:28] LABS: Urine Microscopic Reflex ORDER UMIC
[2018-06-19 15:37] LABS: Urine Bacteria <20 /HPF (NONE SEEN); Urine Culture Reflex Order NOT NEEDED
--- NOTE | 2018-06-19 17:21 | P.PN ---
Subjective Date of Service: 06/19/18 Chief Complaint: Respiratory failure The patient is seen and examined. Chart reviewed and case discussed with RN and Dr. ordonez and Dr. Muñiz. He is status post cardioversion yesterday, continues to be normal sinus rhythm. Patient passed SBT and Patient is now extubated, still having some acute respiratory distress. Continues to be on BiPAP Review of Systems 10-point ROS is otherwise unremarkable Physical Examination - Vital Signs Temperature: 97.7 F Blood Pressure: 124/80 Pulse: 94 Respirations: 28 Pulse Ox (%): 95 - Studies Medications List Reviewed: Yes Assessment And Plan - Plan A 72-year-old male with: 1. Sepsis, improving, secondary to pneumonia. We will continue IV antibiotics with cefepime. Discontinue vancomycin. Appreciate Dr. Muñiz's input. 2. Right upper lobe pneumonia. Antibiotics adjusted. Cultures are negative to date. 3. New onset atrial fibrillation with rapid ventricular response. He has been in normal sinus rhythm since cardioversion yesterday. Continue anticoagulation with Lovenox at this time. Will switch over to oral anticoagulation prior to discharge. 4. Stage I right upper lobe lung cancer status post radiation and chemotherapy. The patient sees Dr. Mitchell. Case discussed with Dr. Mitchell 5. Essential hypertension, stable. 6. Acute respiratory distress with hypoxia, secondary to pneumonia and atrial fibrillation. Status post intubation, now extubated. Still requiring BiPAP 7. Chronic obstructive pulmonary disease, chronic bronchitis. We will continue nebulizer treatments, switch to Xopenex, and resume Symbicort. 8. Overweight, BMI 29.9. 9. Gastrointestinal and deep venous thrombosis prophylaxis with PPI and Lovenox. Plan: continue to monitor in ICU, pending symptomatic improvement. Social work involved for LTAC placement. Karthik has chosen [facility]. Time Spent Managing PTS Care (In Minutes): 35
[2018-06-19] MEDS: ACETAMINOPHEN 500 MG TAB PO PRN (20:07)
[2018-06-19] MEDS: CYCLOBENZAPRINE 10 MG TAB PO SCH (20:07)
[2018-06-19] MEDS: TRAZODONE 50 MG TABLET PO PRN (20:08)
[2018-06-19] MEDS: ATORVASTATIN 40 MG TAB PO SCH (20:08)
[2018-06-20] MEDS: LEVALBUTEROL 1.25 MG/3 ML NEB NEB SCH ×6 (01:35→19:32)
[2018-06-20] MEDS: IPRATROPIUM BROM 0.5MG/2.5ML NEB SCH ×4 (01:35→19:33)
[2018-06-20] MEDS: SOTALOL HCL 80 MG TAB PO SCH ×2 (05:42→17:38)
[2018-06-20 06:01] LABS: BUN Blood Urea Nitrogen 17 mg/dL (7-18); Bicarbonate 31 mmol/L (21-32); Glucose Level 125 mg/dL (74-106); Magnesium 2.1 mg/dL (1.8-2.4); Phosphorus 3.1 mg/dL (2.5-4.9); Potassium 4.3 mmol/L (3.5-5.1); Sodium Level 134 mmol/L (136-145)
[2018-06-20 06:09] VITALS: BMI 28.5
[2018-06-20 06:14] LABS: Absolute Lymphocytes (CBC) 0.6 K/uL (0.7-4.9); Absolute Monocytes 0.7 K/uL (0.1-1.3); Basophils % 0.1 % (0-1.3); Hematocrit 35.2 % (39.6-49.0); Lymphocytes % 2.3 % (15.3-44.8); MPV 7.5 fL (7.6-11.3); Monocytes % 2.6 % (3.3-12.3); RBC Red Blood Cell Count 3.84 M/uL (4.33-5.43)
[2018-06-20 06:44] LABS: Blood Morphology Comment NOT SEEN (NOT SEEN); Platelet Estimate ADEQ; Toxic Granulation 2+; Urine White Blood Cell Casts OK
[2018-06-20] MEDS: ARFORMOTEROL TARTRATE 15 MCG/2 ML VIAL.NEB NEB SCH ×2 (07:48→19:32)
--- NOTE | 2018-06-20 08:16 | P.PN ---
Subjective Date of Service: 06/20/18 Chief Complaint: Respiratory failure Patient is improving he feels better still requiring BiPAP white count is still elevated eating and drinking fine no fever chills CT scan shows some atelectasis from his prior cancer Review of Systems General: Weakness Respiratory: Shortness of Breath Physical Examination - Vital Signs Temperature: 97 F Blood Pressure: 138/86 Pulse: 73 Respirations: 20 Pulse Ox (%): 97 - Physical Exam General: Alert, Oriented x3, Oriented x1 HEENT: Atraumatic Neck: Supple Respiratory: Clear to auscultation bilaterally, Diminished Cardiovascular: No edema, Regular rate/rhythm Gastrointestinal: Normal bowel sounds, Soft and benign - Studies Medications List Reviewed: Yes Assessment & Plan - Problems (Diagnosis) (1) COPD exacerbation Current Visit: Yes Status: Acute Plan: Patient admitted with respiratory failure he is doing much better currently there is no evidence of sepsis although his white count is still elevated CT scan no evidence of convincing pneumonia is probably got some postobstructive atelectasis Dc Levaquin Dc Protonix trial off by BiPAP transfer to the floor bedside physical therapy all his cultures are so far negative reduce dose of prednisone
[2018-06-20] MEDS: APIXABAN 5 MG TABLET PO SCH ×2 (08:45→21:52)
[2018-06-20] MEDS: LOSARTAN POTASSIUM 50 MG TABLET PO SCH (08:45)
[2018-06-20] MEDS: predniSONE 10 MG TAB PO SCH ×2 (08:46→21:52)
[2018-06-20] MEDS: AMLODIPINE 10 MG TAB PO SCH (08:46)
[2018-06-20] MEDS: FOLIC ACID 1 MG TABLET PO SCH (08:46)
[2018-06-20] MEDS: ROFLUMILAST 500 MCG TABLET PO SCH (08:46)
[2018-06-20] MEDS: FUROSEMIDE 20 MG/ 2ML VIAL IV SCH (08:46)
[2018-06-20] MEDS: FINASTERIDE 5 MG TAB PO SCH (08:46)
--- NOTE | 2018-06-20 18:49 | P.PN ---
Subjective Date of Service: 06/20/18 Chief Complaint: Respiratory failure Subjective: Improving The patient is seen and examined. Chart reviewed and case discussed with RN and Dr. ordonez and Dr. Muñiz. He is status post cardioversion yesterday, continues to be normal sinus rhythm. Patient passed SBT and Patient is now extubated, still having some acute respiratory distress. Continues to be on BiPAP, though was able to be off of it for 3 hr today Review of Systems 10-point ROS is otherwise unremarkable Physical Examination - Vital Signs Temperature: 97 F Blood Pressure: 108/82 Pulse: 97 Respirations: 25 Pulse Ox (%): 97 - Physical Exam General: Alert, In no apparent distress, Oriented x3 HEENT: Atraumatic, PERRLA, EOMI Neck: Supple, JVD not distended Respiratory: Dull, Expiratory wheezes, Inspiratory wheezes Cardiovascular: Regular rate/rhythm, Normal S1 S2 Gastrointestinal: Normal bowel sounds, No tenderness Musculoskeletal: No tenderness Integumentary: No rashes Neurological: Normal speech, Normal tone, Normal affect Lymphatics: No axilla or inguinal lymphadenopathy - Studies Medications List Reviewed: Yes Assessment And Plan - Plan A 72-year-old male with: 1. Sepsis, improving, secondary to pneumonia. We will continue IV antibiotics with cefepime. Discontinue vancomycin. Appreciate Dr. Muñiz's input. 2. Right upper lobe pneumonia. Antibiotics adjusted. Cultures are negative to date. 3. New onset atrial fibrillation with rapid ventricular response. He has been in normal sinus rhythm since cardioversion during this hospitalization. Continue anticoagulation with Lovenox at this time. Will switch over to oral anticoagulation prior to discharge. 4. Stage I right upper lobe lung cancer status post radiation and chemotherapy. The patient sees Dr. Mitchell. Case discussed with Dr. Mitchell 5. Essential hypertension, stable. 6. Acute respiratory distress with hypoxia, secondary to pneumonia and atrial fibrillation. Status post intubation, now extubated. Still requiring BiPAP 7. Chronic obstructive pulmonary disease, chronic bronchitis. We will continue nebulizer treatments, switch to Xopenex, and resume Symbicort. 8. Overweight, BMI 29.9. 9. Gastrointestinal and deep venous thrombosis prophylaxis with PPI and Lovenox. Plan: Transfer to the floor, continue BiPAP as needed. Pending symptomatic improvement. Social work involved for LTAC placement. Family has chosen [facility].
[2018-06-20] MEDS: ATORVASTATIN 40 MG TAB PO SCH (21:52)
[2018-06-20] MEDS: CYCLOBENZAPRINE 10 MG TAB PO SCH (21:53)
[2018-06-21] MEDS: LEVALBUTEROL 1.25 MG/3 ML NEB NEB SCH ×4 (02:24→20:00)
[2018-06-21] MEDS: IPRATROPIUM BROM 0.5MG/2.5ML NEB SCH ×4 (02:28→20:00)
[2018-06-21] MEDS: SOTALOL HCL 80 MG TAB PO SCH ×2 (05:05→16:49)
[2018-06-21] MEDS: ARFORMOTEROL TARTRATE 15 MCG/2 ML VIAL.NEB NEB SCH ×2 (07:30→20:00)
[2018-06-21] MEDS: FUROSEMIDE 20 MG/ 2ML VIAL IV SCH (09:25)
[2018-06-21] MEDS: AMLODIPINE 10 MG TAB PO SCH (09:25)
[2018-06-21] MEDS: ROFLUMILAST 500 MCG TABLET PO SCH (09:26)
[2018-06-21] MEDS: FOLIC ACID 1 MG TABLET PO SCH (09:26)
[2018-06-21] MEDS: predniSONE 10 MG TAB PO SCH ×2 (09:26→20:37)
[2018-06-21] MEDS: LOSARTAN POTASSIUM 50 MG TABLET PO SCH (09:26)
[2018-06-21] MEDS: APIXABAN 5 MG TABLET PO SCH ×2 (09:26→20:38)
[2018-06-21] MEDS: FINASTERIDE 5 MG TAB PO SCH (09:26)
[2018-06-21 13:45] LABS: Absolute Lymphocytes (CBC) 0.6 K/uL (0.7-4.9); Absolute Monocytes 1.7 K/uL (0.1-1.3); Absolute Neutrophil 25.2 K/uL (1.8-8.0); Basophils % 0.2 % (0-1.3); Eosinophils % 0.1 % (0-4.4); Hematocrit 38.2 % (39.6-49.0); Lymphocytes % 2.3 % (15.3-44.8); Monocytes % 6.1 % (3.3-12.3)
--- NOTE | 2018-06-21 18:17 | PN ---
Code Status: Full. Medications: List reviewed Subjective: The patient is seen and examined. Chart reviewed, and case discussed with RN. The huy ent is familiar to me from last week when he was initially admitted. The patient was intubated and w as extubated yesterday, the day prior to being seen. Continues to require BiPAP continuously. Overa ll states he feels better. Physical Examination: Vital Signs: Temperature 97.8, heart rate 80, blood pressure 123/89, respirations 19, O2 of 92% on B iPAP. General: Awake, alert, oriented x3. An ill-appearing male, elderly. CV: S1, S2. Regular rate and rhythm. Peripheral pulses weak bilaterally. Respiratory: Diminished breath sounds. Some rhonchi heard along with some expiratory wheezes. No u se of accessory muscles. Gastrointestinal: Abdomen is soft, nontender, nondistended. Positive bowel sounds. Extremities: No clubbing, cyanosis, or edema. Neurologic: Nonfocal. Laboratory Data: Labs are pending. Blood cultures, no growth. Final repeat blood cultures also roberta wing no growth. Urine culture, no growth, final. Assessment: A 72-year-old male with: 1.Sepsis, improving secondary to pneumonia, on cefepime. Vancomycin has been discontinued. Blood c ulture showed no growth to date. 2.Right upper lobe pneumonia. We will continue antibiotics. Cultures are negative. Appreciate Dr. Muñiz's input. 3.New-onset atrial fibrillation with rapid ventricular response. The patient has been in sinus rhyt hm since cardioversion during this hospitalization. Continue with anticoagulation. The patient will need oral anticoagulation upon discharge. 4.Stage I right upper lobe cancer, status post radiation and chemotherapy. Follows with Dr. Marita king. 5.Essential hypertension, stable. 6.Acute respiratory failure with hypoxia secondary to pneumonia and atrial fibrillation. The patien t had been intubated, now extubated, however, still requiring BiPAP. 7.Chronic obstructive pulmonary disease, chronic bronchitis. Continue Xopenex and Symbicort. 8.Overweight, BMI 28.6. 9.Gastrointestinal and deep venous thrombosis prophylaxis with PPI and Lovenox. Plan: Wean off BiPAP as tolerated. LTAC placement pending. Transfer to [facility] once accepted. Eva white guarded prognosis. /COLIN Voice ID: [id number] Report ID: [id number]
[2018-06-21] MEDS: ACETAMINOPHEN 500 MG TAB PO PRN (18:51)
[2018-06-21] MEDS: TRAZODONE 50 MG TABLET PO PRN (20:37)
[2018-06-21] MEDS: ATORVASTATIN 40 MG TAB PO SCH (20:38)
[2018-06-21] MEDS: CYCLOBENZAPRINE 10 MG TAB PO SCH (20:38)
[2018-06-22] MEDS: IPRATROPIUM BROM 0.5MG/2.5ML NEB SCH ×4 (02:00→20:14)
[2018-06-22] MEDS: LEVALBUTEROL 1.25 MG/3 ML NEB NEB SCH ×4 (02:00→20:14)
[2018-06-22] MEDS: SOTALOL HCL 80 MG TAB PO SCH ×2 (05:45→17:19)
[2018-06-22] MEDS: ARFORMOTEROL TARTRATE 15 MCG/2 ML VIAL.NEB NEB SCH ×2 (08:28→20:14)
--- NOTE | 2018-06-22 08:37 | P.PN ---
Subjective Date of Service: 06/22/18 Chief Complaint: COPD exacerbation Patient states that his improving still requiring BiPAP intermittently white count is elevated scheduled to go to an LTAC denies any cough sputum hemoptysis Review of Systems General: Weakness Respiratory: Cough, Shortness of Breath Physical Examination - Vital Signs Temperature: 97.3 F Blood Pressure: 97/67 Pulse: 90 Respirations: 18 Pulse Ox (%): 94 - Physical Exam General: Oriented x3, Cachectic, Moderate distress Neck: Supple Respiratory: Expiratory wheezes Cardiovascular: No edema, Regular rate/rhythm - Studies Medications List Reviewed: Yes Assessment & Plan - Problems (Diagnosis) (1) COPD exacerbation Current Visit: Yes Status: Acute Plan: Patient is currently stable on maximum bronchodilator therapy all his blood cultures and sputum cultures are so far negative not sure why his white count is elevated vital signs are satisfactory is a predominance of neutrophils if he is not on any antibiotics does not appear to be septic no diarrhea
[2018-06-22] MEDS: predniSONE 10 MG TAB PO SCH ×2 (09:52→21:22)
[2018-06-22] MEDS: FOLIC ACID 1 MG TABLET PO SCH (09:52)
[2018-06-22] MEDS: ROFLUMILAST 500 MCG TABLET PO SCH (09:52)
[2018-06-22] MEDS: ACETAMINOPHEN 500 MG TAB PO PRN (09:53)
[2018-06-22] MEDS: AMLODIPINE 10 MG TAB PO SCH (09:53)
[2018-06-22] MEDS: APIXABAN 5 MG TABLET PO SCH ×2 (09:53→21:21)
[2018-06-22] MEDS: FUROSEMIDE 20 MG/ 2ML VIAL IV SCH (09:54)
[2018-06-22] MEDS: LOSARTAN POTASSIUM 50 MG TABLET PO SCH (09:54)
[2018-06-22] MEDS: FINASTERIDE 5 MG TAB PO SCH (09:56)
[2018-06-22] MEDS: ALBUTEROL 2.5 MG/3 ML NEB SOL NEB PRN (12:34)
--- NOTE | 2018-06-22 12:37 | PN ---
Date of Progress Note: 06/22/2018 Subjective: The patient is seen and examined. Chart reviewed, and case discussed with RN. The huy ent tolerating some time off BiPAP in order to eat breakfast. States that he was able to get good sl eep last night. No acute events overnight. Medications: List reviewed. Physical Examination: Vital Signs: Temperature 97.1, heart rate 85, blood pressure 118/80, respirations 18, O2 of 97% on 4 L via nasal cannula. General: Awake, alert, oriented x3. Some mild respiratory distress. An elderly male. CV: S1 and S2. Peripheral pulses present. Regular rate and rhythm. Respiratory: Diminished breath sounds. Some wheezing heard. The patient is slightly tachypneic. Gastrointestinal: Abdomen is soft, nontender, nondistended. Positive bowel sounds. Extremities: No clubbing, cyanosis, or edema. Neurologic: Nonfocal. Laboratory Data: Pending. Blood cultures, no growth to date. Assessment: A 72-year-old male with: 1.Sepsis, improved, secondary to pneumonia. Blood cultures are negative. Antibiotics have been sto pped by Pulmonary. 2.Right upper lobe pneumonia. Cultures negative. Was treated with cefepime and vancomycin. The pa tiegal continues to have elevated WBC count. The patient is on steroids. May be steroid-induced leuk ocytosis. We will repeat CBC. 3.New-onset atrial fibrillation with rapid ventricular rate, status post cardioversion, now in sinus rhythm. We will continue anticoagulation. We will switch to oral anticoagulation upon discharge. 4.Stage I right upper lobe cancer, status post radiation and chemotherapy. Follows with Hematology outpatient. 5.Essential hypertension, stable. 6.Acute respiratory failure with hypoxia secondary to pneumonia and atrial fibrillation. The patien t is now off the ventilator, however, still requiring BiPAP throughout. 7.Chronic obstructive pulmonary disease, chronic bronchitis. Continue Xopenex and Symbicort. 8.Overweight, BMI 28.6. 9.Gastrointestinal and deep venous thrombosis prophylaxis with PPI and Lovenox. Plan: Discharge to LTAC once accepted. /COLIN Voice ID: [id number] Report ID: [id number]
[2018-06-22] MEDS: ATORVASTATIN 40 MG TAB PO SCH (21:21)
[2018-06-22] MEDS: CYCLOBENZAPRINE 10 MG TAB PO SCH (21:21)
[2018-06-22] MEDS: TRAZODONE 50 MG TABLET PO PRN (22:48)
[2018-06-23] MEDS: IPRATROPIUM BROM 0.5MG/2.5ML NEB SCH ×4 (01:15→18:35)
[2018-06-23] MEDS: LEVALBUTEROL 1.25 MG/3 ML NEB NEB SCH ×5 (01:15→19:01)
[2018-06-23 04:37] LABS: Absolute Lymphocytes (CBC) 0.7 K/uL (0.7-4.9); Absolute Monocytes 1.3 K/uL (0.1-1.3); Absolute Neutrophil 16.5 K/uL (1.8-8.0); Basophils % 0.1 % (0-1.3); Eosinophils % 0.1 % (0-4.4); Hematocrit 36.9 % (39.6-49.0); Lymphocytes % 3.6 % (15.3-44.8); RBC Red Blood Cell Count 4.07 M/uL (4.33-5.43)
[2018-06-23 04:51] LABS: BUN Blood Urea Nitrogen 18 mg/dL (7-18); Bicarbonate 27 mmol/L (21-32); Glucose Level 113 mg/dL (74-106); Potassium 4.2 mmol/L (3.5-5.1); Sodium Level 132 mmol/L (136-145)
[2018-06-23 05:07] LABS: Blood Morphology Comment NOT SEEN (NOT SEEN); Platelet Estimate ADEQ; Toxic Granulation 3+
[2018-06-23] MEDS: SOTALOL HCL 80 MG TAB PO SCH ×2 (06:16→17:29)
[2018-06-23] MEDS: ARFORMOTEROL TARTRATE 15 MCG/2 ML VIAL.NEB NEB SCH ×3 (08:30→19:01)
[2018-06-23] MEDS: FUROSEMIDE 20 MG/ 2ML VIAL IV SCH (08:58)
[2018-06-23] MEDS: ACETAMINOPHEN 500 MG TAB PO PRN (08:58)
[2018-06-23] MEDS: ROFLUMILAST 500 MCG TABLET PO SCH (08:59)
[2018-06-23] MEDS: AMLODIPINE 10 MG TAB PO SCH (08:59)
[2018-06-23] MEDS: FOLIC ACID 1 MG TABLET PO SCH (08:59)
[2018-06-23] MEDS: FINASTERIDE 5 MG TAB PO SCH (08:59)
[2018-06-23] MEDS: LOSARTAN POTASSIUM 50 MG TABLET PO SCH (08:59)
[2018-06-23] MEDS: predniSONE 10 MG TAB PO SCH ×2 (08:59→22:15)
[2018-06-23] MEDS: APIXABAN 5 MG TABLET PO SCH ×2 (08:59→22:15)
--- NOTE | 2018-06-23 17:32 | PN ---
Date of Progress Note: 06/23/2018 Subjective: The patient is seen and examined. Chart reviewed and case discussed with RN. Family at the bedside along with patient advocate. Treatment plan explained. All questions answered. The patient states he is feeling better, tolerating being off the BiPAP slightly more than yesterday, however, was only off for a few hours yesterday. Medications: List reviewed. Physical Examination: Vital Signs: Temperature 97.6, heart rate 84, blood pressure 108/69, respirations 20, and O2 of 95% on 4 L via nasal cannula. General: Awake, alert, and oriented x3. Elderly male, ill appearing, some mild respiratory distress. CV: S1 and S2. Regular rate and rhythm. Peripheral pulses present. Respiratory: Diminished breath sounds. Some mild wheezing heard. Slightly tachypneic. No use of accessory muscles. Gastrointestinal: Abdomen is soft, nontender, and nondistended. Positive bowel sounds. Extremities: No clubbing or cyanosis. Trace pedal edema. Neurologic: Nonfocal. Laboratory Data: Sodium 132, potassium 4.2, chloride 97, CO2 of 27, BUN 18, creatinine 0.63, glucose 113, and calcium 8.6. WBC 18.5, H and H of 12.5 and 36.9, platelets 287, and neutrophils 89%. Blood cultures negative. Sputum cultures, yeast. Assessment And Plan: A 72-year-old male with, 1. Sepsis, resolving, secondary to pneumonia. Blood cultures negative. Sputum cultures showing yeast only. WBC count trending down. 2. Right upper lobe pneumonia. Cultures are negative. Treated with cefepime and vancomycin. 3. New-onset atrial fibrillation with rapid ventricular response, status post cardioversion, now in sinus rhythm. We will continue anticoagulation. 4. Stage I right upper lobe cancer, status post chemo and radiation therapy. Continue with outpatient followup with Hematology. 5. Essential hypertension, stable. 6. Acute respiratory failure with hypoxia secondary to pneumonia and atrial fibrillation. The patient is now off the ventilator, however, requiring BiPAP intermittently. Has only been able to tolerate BiPAP to be off for a few hours. We will continue wean as tolerated. 7. Chronic obstructive pulmonary disease and chronic bronchitis. We will continue breathing treatments and nebulizers. 8. Overweight, BMI 28.6. 9. Gastrointestinal and deep venous thrombosis prophylaxis with PPI and Lovenox. PLAN: The patient unfortunately was denied LTAC placement by an insurance after [id number] and after secondary to p.o., we will continue to wean as tolerated off BiPAP or set up BiPAP for home. We will discuss with Case Management. [facility] were discussed with him. The patient's status is improving, however, slowly. We will continue to monitor. /COLIN Voice ID: [id number] Report ID: [id number] MTDJohn
[2018-06-23] MEDS: ATORVASTATIN 40 MG TAB PO SCH (22:15)
[2018-06-23] MEDS: CYCLOBENZAPRINE 10 MG TAB PO SCH (22:15)
[2018-06-23] MEDS: TRAZODONE 50 MG TABLET PO PRN (22:22)
[2018-06-24] MEDS: IPRATROPIUM BROM 0.5MG/2.5ML NEB SCH ×4 (01:30→19:50)
[2018-06-24] MEDS: LEVALBUTEROL 1.25 MG/3 ML NEB NEB SCH ×4 (01:30→19:50)
[2018-06-24] MEDS: SOTALOL HCL 80 MG TAB PO SCH ×2 (05:12→17:39)
[2018-06-24 06:14] LABS: Absolute Lymphocytes (CBC) 0.7 K/uL (0.7-4.9); Absolute Monocytes 1.2 K/uL (0.1-1.3); Absolute Neutrophil 14.9 K/uL (1.8-8.0); Basophils % 0.3 % (0-1.3); Hematocrit 34.8 % (39.6-49.0); MPV 6.7 fL (7.6-11.3); Monocytes % 7.3 % (3.3-12.3); RBC Red Blood Cell Count 3.82 M/uL (4.33-5.43)
[2018-06-24] MEDS: ARFORMOTEROL TARTRATE 15 MCG/2 ML VIAL.NEB NEB SCH ×2 (08:17→19:50)
[2018-06-24] MEDS: LOSARTAN POTASSIUM 50 MG TABLET PO SCH (08:38)
[2018-06-24] MEDS: FINASTERIDE 5 MG TAB PO SCH (08:38)
[2018-06-24] MEDS: ROFLUMILAST 500 MCG TABLET PO SCH (08:39)
[2018-06-24] MEDS: FOLIC ACID 1 MG TABLET PO SCH (08:39)
[2018-06-24] MEDS: APIXABAN 5 MG TABLET PO SCH ×2 (08:39→21:34)
[2018-06-24] MEDS: predniSONE 10 MG TAB PO SCH ×2 (08:40→21:35)
[2018-06-24] MEDS: AMLODIPINE 10 MG TAB PO SCH (08:41)
[2018-06-24] MEDS: FUROSEMIDE 20 MG/ 2ML VIAL IV SCH (08:42)
[2018-06-24] MEDS: ACETAMINOPHEN 500 MG TAB PO PRN ×2 (08:43→21:33)
[2018-06-24 11:39] LABS: Arterial Blood Carboxyhemoglob 1.4 % (0-1.5); Blood Gas Oxyhemoglobin 96.2 % (94-97); Blood O2 Saturation 98.1 % (92-98.5)
--- NOTE | 2018-06-24 15:41 | PN ---
Subjective: The patient has been doing well off BiPAP for the overnight. He does still have some co ugh with minimal sputum production. The patient is very weak, unable to get out of bed without stas t. Becomes very dyspneic on minimal exertion. Medications: List reviewed. Physical Examination: Vital Signs: Temperature 97.7, heart rate 81, blood pressure 114/77, respirations 20, O2 of 100% on 3 L via nasal cannula. General: Awake, alert, oriented x3. An elderly male, in some mild respiratory distress, slightly il l appearing. CV: S1 and S2. Regular rate and rhythm. Peripheral pulses present. Respiratory: Diminished breath sounds. Some wheezing heard and some rhonchi. The patient is slight ly tachypneic. No use of accessory muscles. Gastrointestinal: Abdomen is soft, nontender, nondistended. Positive bowel sounds. Extremities: No clubbing, cyanosis, or edema. Neurologic: Nonfocal. Laboratory Data: WBC 16.8, H and H 12 and 34.8, platelets 333, neutrophils 88%. Blood cultures, no growth to date. Assessment: A 72-year-old male with: 1.Sepsis, resolving, secondary to pneumonia. WBC count is trending down. No fevers. Blood culture s are negative. Sputum cultures, grew out yeast. 2.Right upper lobe pneumonia, completed treatment with cefepime and vancomycin. Still has some resi dual cough with sputum production, minimal wheezing. 3.New-onset atrial fibrillation with rapid ventricular rate, status post cardioversion, currently in sinus rhythm. We will transition to oral anticoagulation on discharge. 4.Stage I right upper lobe cancer, status post chemo and radiation therapy. The patient will need t o follow up with Hematology as an outpatient. 5.Essential hypertension, stable. 6.Acute respiratory failure with hypoxia, secondary to pneumonia and atrial fibrillation. The patie nt now extubated, off the ventilator. Tolerating being off the BiPAP more and more. Did well overni ght off BiPAP. Currently on 3 L via nasal cannula which is his baseline at home. We will repeat ABG and reassess his blood gas and need for further BiPAP. 7.Chronic obstructive pulmonary disease, chronic bronchitis. Continue nebulizer treatments. 8.Overweight, BMI 28.6. 9.Gastrointestinal and deep venous thrombosis prophylaxis with PPI and Lovenox. Plan: PT eval. The patient will likely need long term facility. He is very weak and decondit ioned after significant stay in the hospital. Will likely need outpatient rehab. We will discuss fu rther with the patient and family and have secondary social studies teacher involved. KIRAN Voice ID: [id number] Report ID: [id number]
[2018-06-24] MEDS: CYCLOBENZAPRINE 10 MG TAB PO SCH (21:33)
[2018-06-24] MEDS: ATORVASTATIN 40 MG TAB PO SCH (21:34)
[2018-06-25] MEDS: LEVALBUTEROL 1.25 MG/3 ML NEB NEB SCH ×4 (01:12→19:50)
[2018-06-25] MEDS: IPRATROPIUM BROM 0.5MG/2.5ML NEB SCH ×4 (01:12→19:50)
[2018-06-25] MEDS: SOTALOL HCL 80 MG TAB PO SCH ×2 (05:06→18:40)
[2018-06-25 05:45] LABS: BUN Blood Urea Nitrogen 14 mg/dL (7-18); Bicarbonate 30 mmol/L (21-32); Glucose Level 100 mg/dL (74-106); Potassium 4.3 mmol/L (3.5-5.1); Sodium Level 131 mmol/L (136-145)
[2018-06-25 05:50] LABS: Absolute Lymphocytes (CBC) 0.6 K/uL (0.7-4.9); Absolute Monocytes 1.2 K/uL (0.1-1.3); Absolute Neutrophil 14.4 K/uL (1.8-8.0); Basophils % 0.2 % (0-1.3); Hematocrit 35.3 % (39.6-49.0); Lymphocytes % 3.7 % (15.3-44.8); MPV 6.6 fL (7.6-11.3); Monocytes % 7.4 % (3.3-12.3); RBC Red Blood Cell Count 3.88 M/uL (4.33-5.43)
[2018-06-25] MEDS: ARFORMOTEROL TARTRATE 15 MCG/2 ML VIAL.NEB NEB SCH ×2 (08:15→19:50)
[2018-06-25] MEDS: ROFLUMILAST 500 MCG TABLET PO SCH (10:34)
[2018-06-25] MEDS: FINASTERIDE 5 MG TAB PO SCH (10:35)
[2018-06-25] MEDS: LOSARTAN POTASSIUM 50 MG TABLET PO SCH (10:35)
[2018-06-25] MEDS: FOLIC ACID 1 MG TABLET PO SCH (10:35)
[2018-06-25] MEDS: FUROSEMIDE 20 MG/ 2ML VIAL IV SCH (10:36)
[2018-06-25] MEDS: AMLODIPINE 10 MG TAB PO SCH (10:36)
[2018-06-25] MEDS: predniSONE 10 MG TAB PO SCH ×2 (10:36→21:21)
[2018-06-25] MEDS: APIXABAN 5 MG TABLET PO SCH ×2 (10:37→21:20)
[2018-06-25] MEDS: ACETAMINOPHEN 500 MG TAB PO PRN ×2 (11:59→21:20)
[2018-06-25] MEDS: ALBUTEROL 2.5 MG/3 ML NEB SOL NEB PRN (12:45)
--- NOTE | 2018-06-25 13:01 | PN ---
Date of Progress Note: 06/25/2018 Subjective: The patient is seen and examined. Chart reviewed and case discussed with RN. The patie nt had PT evaluation done yesterday, did not do well. He will likely need long-term facility, worked the patient regarding long-term facility placement. The patient agrees and medication l ist reviewed. Physical Examination: Vital Signs: Temperature 97, heart rate 77, blood pressure 111/69, respirations 20, O2 98% on room a ir. General: Awake, alert, oriented x3. Some mild respiratory distress. Elderly male. CV: S1 and S2. Regular rate and rhythm. Peripheral pulses present. Respiratory: Diminished breath sounds. Some wheezing still present, overall improved. Gastrointestinal: Abdomen is soft, nontender, nondistended. Positive bowel sounds. No guarding or rigidity. Extremities: No clubbing, cyanosis, or edema. Neurologic: Nonfocal. Laboratory Data: Sodium 131, potassium 4.3, chloride 94, CO2 30, BUN 14, creatinine 0.72, glucose 10 0, calcium 8.6. WBC 16.2, H and H 12 and 35.3, platelets 361, neutrophils 88%. Cultures negative. Assessment And Plan: A 72-year-old male with: 1.Sepsis, resolving, secondary to pneumonia. WBC still elevated at 16,000. No fevers. Cultures ar e negative. Most likely due to steroid induced leukocytosis. Sputum cultures did grow yeast. 2.Right upper lobe pneumonia. Antibiotics completed. The patient was treated with cefepime and van comycin, improved. 3.New-onset atrial fibrillation with rapid ventricular rate, status post cardioversion. The patient now in sinus rhythm, on Eliquis. Continue rate control. 4.Stage I upper lobe cancer, status post chemotherapy and radiation therapy. The patient to follow up with Oncology outpatient. 5.Essential hypertension, stable. 6.Acute respiratory failure with hypoxia, secondary to pneumonia and atrial fibrillation. The patie nt is making slow improvement. No longer requiring BiPAP. Has been off for greater than 24 hours, n ow on baseline oxygen level at 3 L. ABG was essentially normal yesterday. Appreciate Pulmonology in put. 7.Chronic obstructive pulmonary disease, chronic bronchitis. Continue nebulizer treatments. The pa tient still has some minimal wheezing. 8.Overweight, BMI 28.6. 9.Gastrointestinal and deep venous thrombosis prophylaxis with Lovenox. Plan: The patient's PT evaluation has been completed. The patient recommended to go to skilled nurs ing facility. Family is looking into facility in [place]. We will discharge him once accepted. KIRAN Voice ID: [id number] Report ID: [id number]
[2018-06-25] MEDS: ATORVASTATIN 40 MG TAB PO SCH (21:20)
[2018-06-25] MEDS: CYCLOBENZAPRINE 10 MG TAB PO SCH (21:21)
[2018-06-26] MEDS: IPRATROPIUM BROM 0.5MG/2.5ML NEB SCH ×4 (01:35→19:50)
[2018-06-26] MEDS: LEVALBUTEROL 1.25 MG/3 ML NEB NEB SCH ×4 (01:35→19:47)
[2018-06-26 05:39] LABS: Absolute Lymphocytes (CBC) 0.7 K/uL (0.7-4.9); Absolute Monocytes 1.1 K/uL (0.1-1.3); Absolute Neutrophil 12.3 K/uL (1.8-8.0); Basophils % 0.4 % (0-1.3); Eosinophils % 0.1 % (0-4.4); MPV 6.7 fL (7.6-11.3); Monocytes % 7.9 % (3.3-12.3); RBC Red Blood Cell Count 3.69 M/uL (4.33-5.43)
[2018-06-26 05:45] LABS: BUN Blood Urea Nitrogen 12 mg/dL (7-18); Bicarbonate 29 mmol/L (21-32); Glucose Level 106 mg/dL (74-106); Magnesium 1.9 mg/dL (1.8-2.4); Phosphorus 3.4 mg/dL (2.5-4.9); Potassium 3.8 mmol/L (3.5-5.1); Sodium Level 133 mmol/L (136-145)
[2018-06-26] MEDS: SOTALOL HCL 80 MG TAB PO SCH ×2 (05:45→18:19)
[2018-06-26] MEDS: ARFORMOTEROL TARTRATE 15 MCG/2 ML VIAL.NEB NEB SCH ×2 (07:41→19:47)
[2018-06-26 08:45] LABS: Blood Morphology Comment NOT SEEN (NOT SEEN); Platelet Estimate ADEQ; Toxic Granulation 1+; Urine White Blood Cell Casts OK
[2018-06-26] MEDS ORDERED: POTASSIUM 25 MEQ EFFERV TAB PO ONE (09:00)
[2018-06-26] MEDS: ROFLUMILAST 500 MCG TABLET PO SCH (09:20)
[2018-06-26] MEDS: APIXABAN 5 MG TABLET PO SCH ×2 (09:21→21:23)
[2018-06-26] MEDS: predniSONE 10 MG TAB PO SCH ×2 (09:21→21:23)
[2018-06-26] MEDS: FOLIC ACID 1 MG TABLET PO SCH (09:21)
[2018-06-26] MEDS: FINASTERIDE 5 MG TAB PO SCH (09:22)
[2018-06-26] MEDS: FUROSEMIDE 20 MG/ 2ML VIAL IV SCH (09:26)
[2018-06-26] MEDS: AMLODIPINE 10 MG TAB PO SCH (13:13)
[2018-06-26] MEDS: LOSARTAN POTASSIUM 50 MG TABLET PO SCH (13:13)
--- NOTE | 2018-06-26 13:38 | PN ---
Date of Progress Note: 06/26/2018 Subjective: Patient seen and examined. Chart reviewed and case discussed with RN. The patient feel s significantly better. He is no longer requiring the BiPAP. He was able to ambulate around the [place] twice, however, did get pretty fatigued and short of breath after he is ambulating. Medications: List reviewed. Physical Examination: Vital Signs: Temperature 97.8, heart rate 73, blood pressure 116/79, respirations 20, O2 100% on 2 L via nasal cannula. General: Awake, alert, oriented x3. Elderly male, ill appearing. CV: S1, S2. Regular rate and rhythm. Peripheral pulses present. Respiratory: Diminished breath sounds. Some wheezing heard. Gastrointestinal: Abdomen is soft, nontender, nondistended. Positive bowel sounds. Extremities: No clubbing, cyanosis, or edema. Neurologic: Nonfocal. Laboratory Data: Sodium 133, potassium 3.8, chloride 95, CO2 29, BUN 12, creatinine 0.59, glucose 10 6, calcium 8.6, phosphorus 3.4, magnesium 1.9. WBC 14.2, H and H of 11.4 and 33, platelets 361, neut rophils 86%. Assessment And Plan: A 72-year-old male with: 1.Sepsis, resolved, secondary to his pneumonia. WBC count trending down. The patient is afebrile. Cultures negative except sputum cultures grew out yeast. Likely expect WBC count to trend down, like ly related to steroid-induced leukocytosis at this time. 2.Right upper lobe pneumonia. Treatment completed with antibiotics, improving. 3.New onset atrial fibrillation with RVR, status post cardioversion, currently in sinus rhythm on El iquis. Continue rate control. 4.Stage I upper lobe cancer, status post chemotherapy and radiation therapy. Oncology followup outpa tient. 5.Essential hypertension, stable. 6.Acute respiratory failure with hypoxia secondary to pneumonia and atrial fibrillation. The patien t initially did require mechanical ventilation and BiPAP, however, now is back to his baseline of 3 L of oxygen via nasal cannula. 7.Chronic obstructive pulmonary disease, chronic bronchitis. We will continue albuterol and ipratro pium breathing treatments. Wheezing has improved significantly. The [facility], still becomes dyspneic upon exertion. 8.Overweight, BMI 28.6. 9.GI/DVT prophylaxis, Lovenox. Plan: Continue PT. Continue ambulation. Discharge to long-term facility once accepted. /COLIN Voice ID: [id number] Report ID: [id number]
[2018-06-26] MEDS: ACETAMINOPHEN 500 MG TAB PO PRN (18:18)
[2018-06-26] MEDS: ALBUTEROL 2.5 MG/3 ML NEB SOL NEB PRN (18:20)
[2018-06-26] MEDS: CYCLOBENZAPRINE 10 MG TAB PO SCH (21:23)
[2018-06-26] MEDS: ATORVASTATIN 40 MG TAB PO SCH (21:26)
[2018-06-27] MEDS: LEVALBUTEROL 1.25 MG/3 ML NEB NEB SCH ×4 (01:35→19:38)
[2018-06-27] MEDS: IPRATROPIUM BROM 0.5MG/2.5ML NEB SCH ×4 (01:35→19:38)
[2018-06-27] MEDS: SOTALOL HCL 80 MG TAB PO SCH ×2 (06:33→18:17)
[2018-06-27 06:50] LABS: BUN Blood Urea Nitrogen 11 mg/dL (7-18); Bicarbonate 32 mmol/L (21-32); Glucose Level 111 mg/dL (74-106); Potassium 4.2 mmol/L (3.5-5.1); Sodium Level 133 mmol/L (136-145)
[2018-06-27] MEDS: ARFORMOTEROL TARTRATE 15 MCG/2 ML VIAL.NEB NEB SCH ×2 (07:55→19:38)
[2018-06-27] MEDS: FINASTERIDE 5 MG TAB PO SCH (09:12)
[2018-06-27] MEDS: AMLODIPINE 10 MG TAB PO SCH (09:12)
[2018-06-27] MEDS: FUROSEMIDE 20 MG/ 2ML VIAL IV SCH (09:12)
[2018-06-27] MEDS: APIXABAN 5 MG TABLET PO SCH ×2 (09:12→21:51)
[2018-06-27] MEDS: predniSONE 10 MG TAB PO SCH ×2 (09:12→21:51)
[2018-06-27] MEDS: ROFLUMILAST 500 MCG TABLET PO SCH (09:12)
[2018-06-27] MEDS: LOSARTAN POTASSIUM 50 MG TABLET PO SCH (09:13)
[2018-06-27] MEDS: FOLIC ACID 1 MG TABLET PO SCH (09:13)
[2018-06-27] MEDS: ACETAMINOPHEN 500 MG TAB PO PRN (12:45)
[2018-06-27] MEDS: CYCLOBENZAPRINE 10 MG TAB PO SCH (21:50)
[2018-06-27] MEDS: ATORVASTATIN 40 MG TAB PO SCH (21:51)
[2018-06-28] MEDS: LEVALBUTEROL 1.25 MG/3 ML NEB NEB SCH ×3 (01:43→13:20)
[2018-06-28] MEDS: IPRATROPIUM BROM 0.5MG/2.5ML NEB SCH ×3 (01:43→13:20)
--- NOTE | 2018-06-28 05:22 | DS ---
Date of Discharge: 06/27/2018 Consultants: 1.Dr. Muñiz with Pulmonology. 2.Dr. Chan with Cardiology. Admitting Diagnoses: 1.Sepsis. 2.Right upper lobe pneumonia. 3.Stage-I right upper lobe lung cancer. 4.Essential hypertension. 5.Acute respiratory distress with hypoxia. 6.Chronic obstructive pulmonary disease, chronic bronchitis. 7.Obesity. Discharge Diagnoses: 1.Sepsis, resolved. 2.Right upper lobe pneumonia. Antibiotic treatment completed. 3.New-onset atrial fibrillation with rapid ventricular response, status post cardioversion on Eliqui s. 4.Stage-I upper lobe cancer, status post chemotherapy and radiation therapy. 5.Essential hypertension. 6.Acute respiratory failure with hypoxia. 7.Chronic obstructive pulmonary disease, chronic bronchitis. 8.Chronic respiratory failure, on home oxygen for chronic obstructive pulmonary disease. 9.Overweight, body mass index of 28.6. 10.Disuse myopathy. Hospital Course: The patient is a 72-year-old male, comes in with shortness of breath and cough. Th e patient was found to be septic. He had pneumonia, started on IV antibiotics. The patient went int o respiratory distress. He does require supplemental oxygen at home 3 L all the time. The patient h ad to be intubated electively due to his worsening respiratory status. He subsequently developed atr ial fibrillation and was cardioverted with medications. He was seen by greens keeper, Dr. Chan, an d also by [employer], Dr. Muñiz. The patient's cultures remained negative including sputum cul tures and blood cultures. Influenza screen was also negative. Echocardiogram showed normal ejection fraction at 60%. The patient's sepsis resolved. His repeat chest x-ray showed improvement. After extubation, he was requiring BiPAP throughout. He was difficult to wean. However, once his conditio n improved, he was able to tolerate being off the BiPAP and was weaned off to his normal oxygen level s at home of 3 L. The patient was able to ambulate and initially got very short of breath. However, as he progressed, his stamina improved. He was able to utilize stairs on supplemental oxygen withou t having significant distress or dyspnea upon exertion. The patient was initially referred to LTAC w hen he was BiPAP dependent; however, was denied. The patient is now able to be weaned off and is sta ble to go home with home physical therapy with oxygen. The patient overall did well, did have a prot racted course in the hospital. He was then stable for discharge. He had completed his antibiotic tr eatment for the pneumonia. Sepsis had resolved. His white count on discharge was mildly elevated du e to steroids. The patient was then cleared for discharge. Procedures: Direct-current cardioversion due to atrial flutter refractory to medications. Discharge Condition: Stable. Activity: No strenuous activity. Diet: Heart healthy. Followup: Follow up with PCP in 2 to 3 days. Follow up with [employer], Dr. Muñiz, in 2 weeks . Follow up with greens keeper, Dr. Chan, in 2 weeks. Return to ER for worsening condition. Medications: As per medication reconciliation list. Physical Examination: General: Awake, alert, oriented x3, elderly male, in no acute distress. CV: S1, S2. No murmurs. Regular rate and rhythm. Respiratory: Moving air well bilaterally. No wheezing. Gastrointestinal: Abdomen is soft, nontender, and nondistended. Positive bowel sounds. Extremities: No clubbing, cyanosis, or edema. Neurologic: Nonfocal. Total time spent discharging the patient was 40 minutes. /COLIN Voice ID: [id number] Report ID: [id number]
[2018-06-28] MEDS: SOTALOL HCL 80 MG TAB PO SCH (06:28)
[2018-06-28] MEDS: ARFORMOTEROL TARTRATE 15 MCG/2 ML VIAL.NEB NEB SCH (07:55)
[2018-06-28 08:41] VITALS: O2SAT 95
[2018-06-28] MEDS: ROFLUMILAST 500 MCG TABLET PO SCH (09:15)
[2018-06-28] MEDS: predniSONE 10 MG TAB PO SCH (09:15)
[2018-06-28] MEDS: LOSARTAN POTASSIUM 50 MG TABLET PO SCH (09:15)
[2018-06-28] MEDS: FUROSEMIDE 20 MG/ 2ML VIAL IV SCH (09:16)
[2018-06-28] MEDS: FINASTERIDE 5 MG TAB PO SCH (09:16)
[2018-06-28] MEDS: FOLIC ACID 1 MG TABLET PO SCH (09:16)
[2018-06-28] MEDS: AMLODIPINE 10 MG TAB PO SCH (09:16)
[2018-06-28] MEDS: APIXABAN 5 MG TABLET PO SCH (09:16)
--- NOTE | 2018-06-28 15:40 | P.PN ---
Date of Service: 06/28/18 Patient seen and examined at bedside. No family at bedside. Chart reviewed and case discussed with nursing staff. Doing well, currently no complaints. Patient discharged as of yesterday, pending home health set up Physical Examination: General: Awake, alert, oriented x3, elderly male, in no acute distress. CV: S1, S2. No murmurs. Regular rate and rhythm. Respiratory: Moving air well bilaterally. No wheezing. Gastrointestinal: Abdomen is soft, nontender, and nondistended. Positive bowel sounds. Extremities: No clubbing, cyanosis, or edema. Neurologic: Nonfocal. Disposition: Patient with discharge orders and, pending home health set up. Discharge home once set up.
[2018-06-28 17:43] VITALS: BP 120/71; TEMP 97.3
== END 2018-06-28 16:49 | disposition home health service (06) | DRG 871 ==
LOC: ER 09:55 → ERHOLD 12:17 → 4TH 13:41 → 3RD-ICU 06-13 12:32 → 2ND 06-20 15:15
PROVIDERS: ADMIT Family Medicine; ATTEND Family Medicine
PROC: 5A09557 Assistance with Respiratory Ventilation, Greater than 96 Consecutive Hours, Continuous Positive Airway Pressure (ICD-10-PCS; 2018-06-12)
PROC: 0BH17EZ Insertion of Endotracheal Airway into Trachea, Via Natural or Artificial Opening (ICD-10-PCS; principal; 2018-06-13)
PROC: 5A1945Z Respiratory Ventilation, 24-96 Consecutive Hours (ICD-10-PCS; 2018-06-13)
PROC: 0D9670Z Drainage of Stomach with Drainage Device, Via Natural or Artificial Opening (ICD-10-PCS; 2018-06-13)
PROC: 5A2204Z Restoration of Cardiac Rhythm, Single (ICD-10-PCS; 2018-06-15)
DX: A41.9 Sepsis, unspecified organism (principal); J18.9 Pneumonia, unspecified organism; J96.01 Acute respiratory failure with hypoxia; B37.1 Pulmonary candidiasis; J44.0 Chronic obstructive pulmonary disease with (acute) lower respiratory infection; J44.1 Chronic obstructive pulmonary disease with (acute) exacerbation; C34.10 Malignant neoplasm of upper lobe, unspecified bronchus or lung; R65.20 Severe sepsis without septic shock; I48.91 Unspecified atrial fibrillation; F17.210 Nicotine dependence, cigarettes, uncomplicated; I10 Essential (primary) hypertension; G72.89 Other specified myopathies; E66.3 Overweight; Z68.28 Body mass index [BMI] 28.0-28.9, adult; Z99.81 Dependence on supplemental oxygen; Z78.1 Physical restraint status
CPT/HCPCS: 36415; 71045; 71250; 80048; 80076; 80202; 81003; 81015; 82805; 83605; 83735; 83880; 84100; 84145; 84443; 84484; 85025; 85610; 87040; 87070; 87086; 87088; 87205; 87804; 93005; 93306; 94002; 94003; 94660; 94667; 94668; 94760; 96365; 96368; 97110; 97116; 97163; 99285; C9113; J0330; J0456; J0692; J0696; J1160; J1650; J1940; J2250; J2704; J2920; J3010; J7030; J7512; J7605